=== PATIENT | male | born 1965 | race Caucasian/White ===

== ENCOUNTER 2023-12-21 16:57 | Inpatient (IN) ==
--- NOTE | 2023-12-21 18:03 | Emergency Department Note ---
Impression & Plan SBO (small bowel obstruction), Abdominal pain ED Provider Note NAME: KATHY TALLEY AGE: 58 SEX: M : 1965 ARRIVES VIA: Walk-In INFORMANT: Patient, ED PROVIDER(S): Serafin Sánchez DO CHIEF COMPLAINT: Abdominal pain HPI: The patient is a 58-year-old male who presented to the emergency department for an evaluation of abdominal pain. The patient has had ongoing abdominal pain over the course the last few days. The patient initially had nausea vomiting. He has a history of cholecystectomy as well as appendectomy. He went to see his family doctor and had outpatient studies ordered. He was sent to the emergency department for further evaluation. ROS: See above HPI for pertinent positives & negatives. A total of 10 systems reviewed and were otherwise negative. PAST MEDICAL HISTORY: See Below PAST SURGICAL HISTORY: See Below FAMILY HISTORY: See Below SOCIAL HISTORY: See Below HOME MEDICATIONS: See Below ALLERGIES: See Below VITALS: See Below PHYSICAL EXAMINATION: GENERAL: Patient is awake alert in no acute distress patient is resting comfortably and showing no signs of anxiety EYES: The conjunctivae are clear. The pupils are round and reactive. EARS, NOSE, MOUTH AND THROAT: The nose is without any evidence of any deformity. NECK: The neck is nontender and supple. RESPIRATORY: Normal respiratory effort is noted there is no evidence of wheezing rhonchi or rales CARDIOVASCULAR: Regular rate and rhythm noted there no murmurs rubs or gallops normal S1 normal S2. GASTROINTESTINAL: The abdomen is distended. There is diffuse tenderness to palpation but no specific guarding rigidity. MUSCULOSKELETAL/EXTREMITIES: There is no evidence of gross deformity full range of motion is noted in the hips and shoulders. SKIN: There is no obvious evidence of any rash. There are no petechiae, pallor or cyanosis noted. NEUROLOGIC: Patient is awake alert and oriented x3 MEDICAL DECISION MAKING: The pain is a 58-year-old male who presented to the emergency department for an evaluation of abdominal pain. The patient was seen by his primary care physician. He did have outpatient radiographic studies including a CAT scan of the abdomen and pelvis. He was found to have signs of small bowel obstruction with a transition point in right lower quadrant. He has a history of appendectomy as well as cholecystectomy. Likely this represents adhesions. The patient was not actively vomiting. I did not order an NG tube in the emergency department. He was treated with IV fluids and IV antiemetics although he did feel quite well. [facility] have agreed to evaluate the patient in the emergency department for further management and disposition. Triage Nursing notes reviewed. Prior medical records reviewed Vital Signs: reviewed and remarkable for no significant abnormalities Differential diagnosis: Etiologies such as appendicitis, diverticulitis, obstruction, inflammatory bowel disease, renal colic, PUD, biliary pathology, pancreatitis, mesenteric ischemia, aortic pathology, infections, genitourinary, UTI, perforated viscus, as well as others were entertained. ER treatment provided: See below Diagnostics interpreted by me: ECG: none Cardiac Monitoring: An order was placed for continuous cardiac monitoring. The monitor shows a rate of 70 bpm with sinus rhythm. Laboratory studies: As stated above and show below. Imaging studies: See below. Radiographic imaging was reviewed by myself Consultation(s): I discussed this case with the on-call [facility] hospitalist. They have agreed to evaluate the patient in the emergency department for further management and disposition. Past Med/Surg History Problem List (Updated 12/21/23 @ 23:59 by Serafin Sánchez DO) Abdominal pain (Acute) SBO (small bowel obstruction) (Acute) Medical History Dyslipidemia Sleep apnea had a sleep study, he "is borderline, said he could have a cpap if he wanted, but his trying to lose weight first" Hypertension Surgical History Hx laparoscopic cholecystectomy Hx of appendectomy History of esophagogastroduodenoscopy (EGD) Hx of colonoscopy Hx of oral surgery implant x1 placed S/P correction of deviated nasal septum Hx of cataract extraction rt/lt. Family History Other Diabetes Hypertension Social History Smoking Status: Former smoker Second Hand Exposure: No; Do You Dip or Chew Tobacco: No; Hx Alcohol Use: Yes Hx Substance Use: No Preferred Language: Urdu Communication Ability: Effective Nuclear Station Operator Required: No Beliefs That Will Affect Care: None Current Living Situation: Spouse and Family Feels Safe at Home: Yes Assistive Devices: None Allergies Allergies Allergy/AdvReac Type Severity Reaction Status Date / Time cephalexin Allergy Severe swelling Verified 12/21/23 23:29 of face and lips Penicillins Allergy Unknown unknown-from Verified 12/21/23 23:29 childhood Home Meds Home Medications Medication Instructions Recorded Confirmed acetaminophen 500 mg tablet 500 mg PO Q6H PRN Pain 03/11/22 12/21/23 ibuprofen 200 mg tablet 600 mg PO Q6H PRN Pain 03/11/22 12/21/23 lisinopril 10 1 tab PO QAM 03/11/22 12/21/23 mg-hydrochlorothiazide 12.5 mg tablet atorvastatin 10 mg tablet 10 mg PO DAILY 12/21/23 12/21/23 omeprazole 40 mg capsule,delayed 40 mg PO DAILY 12/21/23 12/21/23 release Results & Data (ED) Vital Signs Vital Signs - 24 hr 12/21/23 17:12 12/21/23 17:48 12/21/23 18:28 Temperature 36.5 C Temperature Source Temporal Artery Scan Pulse Rate 79 80 Pulse Rate [Left Apical] 75 Pulse Rate from SpO2 Sensor Respiratory Rate 14 20 Respiratory Effort / Characteristics Non-Labored Spontaneous Respiratory Depth Normal Respiratory Pattern Regular Blood Pressure 146/83 H Blood Pressure [Left Arm] 148/84 H Blood Pressure Mean 104 Blood Pressure Mean [Left Arm] 105 Blood Pressure Position [Left Arm] Semi-fowlers Pulse Oximetry 98 98 Oxygen Delivery Method Room Air Room Air Sepsis New/Unexplained Change in Mental Status No Sepsis Action Taken by Nursing No Action Required 12/21/23 19:00 12/21/23 19:21 12/21/23 19:24 Temperature Temperature Source Pulse Rate 67 65 Pulse Rate [Left Apical] Pulse Rate from SpO2 Sensor 66 64 Respiratory Rate 14 14 Respiratory Effort / Characteristics Respiratory Depth Respiratory Pattern Blood Pressure 138/85 Blood Pressure [Left Arm] Blood Pressure Mean 110 Blood Pressure Mean [Left Arm] Blood Pressure Position [Left Arm] Pulse Oximetry 99 97 Oxygen Delivery Method Sepsis New/Unexplained Change in Mental Status Sepsis Action Taken by Nursing 12/21/23 19:30 12/21/23 19:30 12/21/23 19:30 Temperature Temperature Source Pulse Rate Pulse Rate [Left Apical] Pulse Rate from SpO2 Sensor Respiratory Rate Respiratory Effort / Characteristics Respiratory Depth Respiratory Pattern Blood Pressure 129/81 129/81 129/81 Blood Pressure [Left Arm] Blood Pressure Mean 106 106 106 Blood Pressure Mean [Left Arm] Blood Pressure Position [Left Arm] Pulse Oximetry Oxygen Delivery Method Sepsis New/Unexplained Change in Mental Status Sepsis Action Taken by Nursing 12/21/23 19:54 12/21/23 20:00 12/21/23 20:00 Temperature Temperature Source Pulse Rate 70 Pulse Rate [Left Apical] Pulse Rate from SpO2 Sensor 72 Respiratory Rate 16 Respiratory Effort / Characteristics Respiratory Depth Respiratory Pattern Blood Pressure 127/78 127/78 Blood Pressure [Left Arm] Blood Pressure Mean 90 90 Blood Pressure Mean [Left Arm] Blood Pressure Position [Left Arm] Pulse Oximetry 95 Oxygen Delivery Method Sepsis New/Unexplained Change in Mental Status Sepsis Action Taken by Nursing 12/21/23 20:00 12/21/23 20:03 Temperature Temperature Source Pulse Rate 67 Pulse Rate [Left Apical] Pulse Rate from SpO2 Sensor 67 Respiratory Rate 12 Respiratory Effort / Characteristics Respiratory Depth Respiratory Pattern Blood Pressure 127/78 Blood Pressure [Left Arm] Blood Pressure Mean 90 Blood Pressure Mean [Left Arm] Blood Pressure Position [Left Arm] Pulse Oximetry 96 Oxygen Delivery Method Sepsis New/Unexplained Change in Mental Status Sepsis Action Taken by Retirement Medications Current Medication List: was personally reviewed by me Laboratory Data Attestation: I reviewed the patient's lab results. 12/21/23 17:41 12/21/23 17:41 Lab Results 12/21/23 12/21/23 12/21/23 Range/Units 17:41 17:45 19:25 WBC 6.72 (4.8-10.8) K/ul RBC 4.99 (4.70-6.10) M/uL Hgb 14.6 (14.0-18.0) g/dl Hct 41.6 L (42.0-52.0) % MCV 83.4 (80.0-100.0) fL MCH 29.3 (25.0-34.0) pg MCHC 35.1 (32.0-36.0) g/dL RDW Std Deviation 41.1 (36.4-46.3) fL RDW Coeff of Re 13.6 (11.5-14.5) % Plt Count 210 (130-400) K/uL MPV 10.9 (9.4-12.4) fL Immature Gran % (Auto) 0.1 % Neut % (Auto) 70.1 % Lymph % (Auto) 22.8 % [place] % (Auto) 5.1 % Eos % (Auto) 1.6 % Baso % (Auto) 0.3 % Neut # (Auto) 4.71 (1.40-6.50) K/uL Lymph # (Auto) 1.53 (1.20-3.40) K/uL [place] # (Auto) 0.34 (0.11-0.59) K/uL Eos # (Auto) 0.11 (0.00-0.50) K/uL Baso # (Auto) 0.02 (0.00-0.20) K/uL Immature Gran # (Auto) 0.01 (0.01-0.20) K/uL Sodium 141 (136-145) mmol/L Potassium 3.3 L (3.5-5.1) mmol/L Chloride 103 (98-107) mmol/L Carbon Dioxide 30 (21-32) mmol/L Anion Gap 8 (3-11) BUN 18 (6-23) mg/dl Creatinine 1.05 (0.6-1.4) mg/dl Est Cr Clr Drug Dosing 88.6 ml/min Est GFR ( Amer) 89.6 ml/min Est GFR (Non-Af Amer) 77.3 ml/min BUN/Creatinine Ratio 17.1 (10-20) Glucose 144 H (70-99(Fasting)) mg/dl Lactate 0.7 (0.4-2.0) mmol/L Calcium 9.5 (8.6-10.3) mg/dl Total Bilirubin 0.7 (0.2-1.0) mg/dl AST 13 (13-39) U/L ALT 11 (7-52) U/L Alkaline Phosphatase 46 (34-104) U/L Total Protein 7.0 (6.0-8.3) gm/dl Albumin 4.4 (3.4-5.0) gm/dl Globulin 2.6 (2.5-4.0) gm/dl Albumin/Globulin Ratio 1.7 (0.9-2) Lipase 7 L (11-82) U/L Urine Color Dark Yellow Urine Appearance Clear (Clear) Urine pH 5.5 (4.5-7.5) Ur Specific [place] 1.021 (1.000-1.030) Urine Protein Trace H (Negative) Urine Glucose (UA) Negative (Negative) Urine Ketones Negative (Negative) Urine Blood Negative (Negative) Urine Nitrite Negative (Negative) Urine Bilirubin Negative (Negative) Urine Urobilinogen Negative (Negative) Ur Leukocyte Esterase Negative (Negative) Urine WBC (Auto) 0-5 (0-5) /hpf Urine RBC (Auto) 0-2 (0-2) /hpf U Hyaline Cast (Auto) 3-5 H (0-2) /lpf U Epithel Cells (Auto) 0-2 (0-2) /hpf Urine Bacteria (Auto) None Seen (None Seen) Urine Mucus Present A (None Prsent) Administered Medications Potassium Chloride 40 meq/ (Sodium Chloride) 1,020 mls @ 100 mls/hr IV .[id number] MICKI Stop: 12/22/23 05:11 Last Admin: 12/21/23 19:30 Dose: 100 mls/hr Documented By: EDDIE Discontinued Medications Sodium Chloride (Nss) 1,000 mls @ 999 mls/hr IV .[id number] ONE Stop: 12/21/23 19:16 Last Infusion: 12/21/23 19:30 Dose: Infused Documented By: Admin: 12/21/23 18:21 Dose: 999 mls/hr Documented By: LOPEZ Sodium Chloride (Nss) 1,000 mls @ 100 mls/hr IV .Q10H MICKI Stop: 01/20/24 18:44 Last Admin: 12/21/23 19:33 Dose: Not Given Documented By: EDDIE Ondansetron HCl (Ondansetron Inj 2 Mg/Ml 2 Ml Vial) 4 mg IV NOW STA Stop: 12/21/23 18:17 Last Admin: 12/21/23 18:21 Dose: 4 mg Documented By: LOPEZ Potassium Chloride (Potassium Chloride Crtab 20 Meq Tabcr) 40 meq PO NOW STA Stop: 12/21/23 18:30 Last Admin: 12/21/23 19:30 Dose: Not Given Documented By: EDDIE Imaging Data Attestation: I personally reviewed and interpreted this imaging study as follows: My Impression: 1 view chest x-ray was obtained in the emergency department. My interpretation is no free air or definite infiltrate, final report below. Radiologist's Impression: Chest X-Ray 12/21/23 17:59 XR chest 1V portable CLINICAL HISTORY: abd pain TECHNIQUE: Single frontal radiograph of the chest was obtained. Comparison: None available at the time of this dictation. FINDINGS: No lines and tubes are seen. The cardiomediastinal silhouette is normal. The lungs are clear. No evidence of pleural effusion or pneumothorax. IMPRESSION: No acute chest disease. ACT 112: Negative or not required by law. Electronically signed by: William Turcios M.D. 12/21/2023 6:21 PM Discharge Plan Visit Data Chief Complaint: GI Assessment Stated Complaint: BOWEL OBSTRUCTION ED Provider: Serafin Sánchez Discharge Problem: SBO (small bowel obstruction), Abdominal pain Patient Disposition: Admitted As Inpatient Discharge Instructions Interventions: ED Discharge Assessment Last Done: 12/21/23 22:18 Discharge Problem: Abdominal pain Qualifiers: Abdominal location: generalized Qualified Code(s): R10.84 - Generalized abdominal pain
[2023-12-21 18:07] LABS: Basophils # (auto) 0.02 K/uL (0.00-0.20); Basophils % (auto) 0.3 %; Eosinophils # (auto) 0.11 K/uL (0.00-0.50); Eosinophils % (auto) 1.6 %; Hematocrit (blood only) 41.6 % (42.0-52.0); Hemoglobin 14.6 g/dl (14.0-18.0); Immature Granulocytes # (auto) 0.01 K/uL (0.01-0.20); Immature Granulocytes % (auto) 0.1 %; Lymphocytes # (auto) 1.53 K/uL (1.20-3.40); Lymphocytes % (auto) 22.8 %; Mean Corpuscular Hemoglobin 29.3 pg (25.0-34.0); Mean Corpuscular Hgb Conc 35.1 g/dL (32.0-36.0); Mean Corpuscular Volume 83.4 fL (80.0-100.0); Mean Platelet Volume 10.9 fL (9.4-12.4); Monocytes # (auto) 0.34 K/uL (0.11-0.59); Monocytes % (auto) 5.1 %; Neutrophils # (auto) 4.71 K/uL (1.40-6.50); Neutrophils % (auto) 70.1 %; Platelet Count 210 K/uL (130-400); RDW Coefficient of Variation 13.6 % (11.5-14.5); RDW Standard Deviation 41.1 fL (36.4-46.3); Red Blood Count 4.99 M/uL (4.70-6.10); White Blood Count 6.72 K/ul (4.8-10.8)
[2023-12-21 18:13] LABS: Appearance Urine Clear (Clear); Bacteria Urine Automated None Seen (None Seen); Bilirubin Urine Negative (Negative); Blood Urine Negative (Negative); Color Urine Dark Yellow; Epithelial Cell Urine Auto 0-2 /hpf (0-2); Glucose Urine UA Negative (Negative); Ketones Urine Negative (Negative); Leukocyte Esterase Urine Negative (Negative); Mucus Urine Present (None Prsent); Nitrite Urine Negative (Negative); Protein Urine Trace (Negative); RBC Urine Automated 0-2 /hpf (0-2); Specific Gravity Urine 1.021 (1.000-1.030); Urobilinogen Urine Negative (Negative); WBC Urine Automated 0-5 /hpf (0-5); pH Urine 5.5 (4.5-7.5)
[2023-12-21 18:20] LABS: Albumin Globulin Ratio 1.7 (0.9-2); Albumin Level 4.4 gm/dl (3.4-5.0); BUN Creatinine Ratio 17.1 (10-20); Bilirubin,Total 0.7 mg/dl (0.2-1.0); Calcium 9.5 mg/dl (8.6-10.3); Creatinine Clr Calc Pharmacy 88.6 ml/min; Est GFR (African American) 89.6 ml/min; Est GFR (Non-African American) 77.3 ml/min; Globulin 2.6 gm/dl (2.5-4.0); Potassium 3.3 mmol/L (3.5-5.1)
[2023-12-21] MEDS: ONDANSETRON INJ 2 MG/ML 2 ML VIAL IV STA (18:21)
[2023-12-21] MEDS: SODIUM CHLORIDE 0.9% 1,000 ML IV ONE (18:21)
--- NOTE | 2023-12-21 18:23 | XRay Report ---
XR chest 1V portable CLINICAL HISTORY: abd pain TECHNIQUE: Single frontal radiograph of the chest was obtained. Comparison: None available at the time of this dictation. FINDINGS: No lines and tubes are seen. The cardiomediastinal silhouette is normal. The lungs are clear. No evid ence of pleural effusion or pneumothorax. IMPRESSION: No acute chest disease. ACT 112: Negative or not required by law. Electronically signed by: William Turcios M.D. 12/21/2023 6:21 PM
--- NOTE | 2023-12-21 18:27 | History & Physical Report ---
Date of Service December 21, 2023 Assessment & Plan (1) SBO (small bowel obstruction): (2) Abdominal pain: Plan: This is a 58-year-old male with PMH of hypertension, dyslipidemia, KARO and other medical problems listed below who was sent in from clinic due to abnormal CT abdomen pelvis findings. "FINDINGS LOWER CHEST: HEART(visualized): Mild calcified coronary artery plaque. LUNG BASES: Punctate right and left lower lobe calcified granulomas. ABDOMEN/PELVIS: LINES AND DEVICES: None. LIVER: Steatosis. Subcentimeter rim calcified capsular calcifications on the right lobe of the liver, possibly small dropped gallstones. BILE DUCTS: Unremarkable. GALLBLADDER: Cholecystectomy. PANCREAS: Unremarkable. SPLEEN: Unremarkable. ADRENALS: Unremarkable. KIDNEYS/URETERS: Cortical cysts. No calculus or hydronephrosis. BLADDER: Underdistended with mild circumferential wall thickening, possibly reflecting chronic bladder outlet obstruction in the setting of prostatomegaly. BOWEL: Dilated loops of ileum, with some loops containing fecalized material (8:348), measure up to 4.1 cm in diameter with transition point in the right lower quadrant (6:58). No pneumatosis. LYMPH NODES: No lymphadenopathy. VESSELS: Calcified atherosclerotic plaque. Engorged small-bowel vasa recta. REPRODUCTIVE ORGANS: Mild prostatomegaly. PERITONEUM/RETROPERITONEUM: Small volume free fluid centered in the right lower quadrant adjacent to dilated loops of small bowel and in the dependent pelvis. Five subcentimeter rim calcified structures in the dependent pelvis and a few in the right peritoneum may be dropped gallstones. ABDOMINAL WALL/SOFT TISSUES: Small fat containing supraumbilical ventral abdominal wall hernia. BONES: 2.7 cm lucent lesion centered in the left intertrochanteric region with thin sclerotic margin. Mild spinal degenerative changes. IMPRESSION IMPRESSION Small-bowel obstruction with transition point in the right lower quadrant and small volume free fluid. Hepatic steatosis. 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 Hold lisinopril-hctz while NPO. Added PRN hydralazine (4) Dyslipidemia: Plan: Resume statin as diet is advanced DVT Ppx: SCDs Code status: FULL PCP: Geovanni Dispo: Admitted to med/surg Patient seen in collaboration with Dr. Arce. Please see addendum. I spent a total of 75 minutes coordinating, documenting, and providing care for this patient excluding time spent in the performance of separately billed services. History of Present Illness Chief Complaint: abd pain, abnormal CT a/p Primary Care Provider: Alan Oshea MD This is a 58-year-old male with PMH of hypertension, dyslipidemia, KARO and other medical problems listed below who was sent in from clinic due to abnormal CT abdomen pelvis findings. Over the past few days, has noted abdominal pain described as cramping, aching and bloating. Poor PO intake with last big meal from [employer] on Wednesday. No nausea and vomiting but continued to have abdominal pain and bloating so went to PCP today. There was initial concern for diverticulitis and CT abd/pelvis was obtained, which revealed small bowel obstruction with transition point in the right lower quadrant and small volume free fluid. History of appendectomy and lap jaclyn. Was sent to ED for further evaluation. No F/C, lightheadedness, CP, SOB, N/V, dysuria, diarrhea or constipation. Still with bloating and TTP, more in epigastrium and upper abdomen. Last bowel movement was Wednesday. Allergies Allergy/AdvReac Type Severity Reaction Status Date / Time cephalexin Allergy Severe swelling Verified 12/21/23 23:29 of face and lips Penicillins Allergy Unknown unknown-from Verified 12/21/23 23:29 childhood Home Medications Medication Instructions Recorded Confirmed Type acetaminophen 500 mg tablet 500 mg PO Q6H PRN Pain 03/11/22 12/21/23 History ibuprofen 200 mg tablet 600 mg PO Q6H PRN Pain 03/11/22 12/21/23 History lisinopril 10 1 tab PO QAM 03/11/22 12/21/23 History mg-hydrochlorothiazide 12.5 mg tablet atorvastatin 10 mg tablet 10 mg PO DAILY 12/21/23 12/21/23 History omeprazole 40 mg capsule,delayed 40 mg PO DAILY 12/21/23 12/21/23 History release Past Med/Surg History Problem List (Updated 12/21/23 @ 23:59 by Serafin Sánchez DO) Abdominal pain (Acute) SBO (small bowel obstruction) (Acute) Medical History Dyslipidemia Sleep apnea had a sleep study, he "is borderline, dr said he could have a cpap if he wanted, but his trying to lose weight first" Hypertension Surgical History Hx laparoscopic cholecystectomy Hx of appendectomy History of esophagogastroduodenoscopy (EGD) Hx of colonoscopy Hx of oral surgery implant x1 placed S/P correction of deviated nasal septum Hx of cataract extraction rt/lt. Family History Other Diabetes Hypertension Social History Smoking Status: Former smoker Tobacco Type: Cigarettes Second Hand Exposure: No; Do You Dip or Chew Tobacco: No; Hx Alcohol Use: No Hx Substance Use: No Preferred Language: Fijian Communication Ability: Effective Non Destructive Evaluation Specialist Required: No Beliefs That Will Affect Care: None Current Living Situation: Spouse and Family Other Information That Helps Us Care for You: No Feels Safe at Home: Yes Assistive Devices: CPAP Review of Systems Review of Systems: At least ten systems reviewed and negative except as noted in the HPI. Physical Exam Physical Exam: General Appearance: WD/WN, vitals as above, NAD, sitting up in bed, conversing easily Head: normocephalic, atraumatic Eyes: normal inspection, PERRL, conjunctivae normal, anicteric sclerae ENT: external ear and nose normal, oropharynx normal Neck: normal visual inspection, trachea midline, no thyromegaly Respiratory: normal respiratory effort, lungs clear to auscultation, no wheeze, rales, rhonchi. No accessory muscle use Cardiovascular: regular rate, rhythm, no murmur, normal peripheral pulses, no BLE edema. Vessels: no JVD Chest: normal inspection of chest Abdomen/GI: hypoactive bowel sounds, soft, TTP throughout but most tender in u pper abdomen/epigastrium, no hepatosplenomegaly Extremities/Musculoskeletal: no cyanosis or clubbing, extremities motor strength 5/5 Neurologic: PERRL, EOMI, accommodation nl, no face palsy, no dysarthria, CN's II-XI intact bilaterally and moves all extremities Psychiatric: A+Ox3, euthymic affect Skin: no rashes, normal color, warm/dry Results & Data Results & Data Vital Signs (Past 12 Hours) Vital Signs Temp Pulse Pulse Resp BP BP Pulse Ox 12/21/23 17:48 75 20 148/84 H 98 12/21/23 17:12 36.5 C 79 14 146/83 H 98 O2 Del Method 12/21/23 17:48 Room Air 12/21/23 17:12 Room Air Laboratory Results Short CBC 12/21/23 Range/Units 17:41 WBC 6.72 (4.8-10.8) K/ul Hgb 14.6 (14.0-18.0) g/dl Hct 41.6 L (42.0-52.0) % Plt Count 210 (130-400) K/uL BMP 12/21/23 17:41 Sodium 141 Potassium 3.3 L Chloride 103 Carbon Dioxide 30 BUN 18 Creatinine 1.05 Glucose 144 H Calcium 9.5 Liver Function 12/21/23 Range/Units 17:41 Total Bilirubin 0.7 (0.2-1.0) mg/dl AST 13 (13-39) U/L ALT 11 (7-52) U/L Alkaline Phosphatase 46 (34-104) U/L Albumin 4.4 (3.4-5.0) gm/dl Urine 12/21/23 Range/Units 17:45 Urine Color Dark Yellow Urine Appearance Clear (Clear) Urine pH 5.5 (4.5-7.5) Ur Specific [place] 1.021 (1.000-1.030) Urine Protein Trace H (Negative) Urine Glucose (UA) Negative (Negative) Diagnostic Findings Chest X-Ray 12/21/23 17:59 XR chest 1V portable CLINICAL HISTORY: abd pain TECHNIQUE: Single frontal radiograph of the chest was obtained. Comparison: None available at the time of this dictation. FINDINGS: No lines and tubes are seen. The cardiomediastinal silhouette is normal. The lungs are clear. No evidence of pleural effusion or pneumothorax. IMPRESSION: No acute chest disease. ACT 112: Negative or not required by law. Electronically signed by: William Turcios M.D. 12/21/2023 6:[address] abd/pelvis from outpatient setting (12/21/23) : IMPRESSION Small-bowel obstruction with transition point in the right lower quadrant and small volume free fluid. Hepatic steatosis. Supervising Physician Co-Signing Physician Notes Pt was seen and examined by myself, Christina Arce MD on the day of service. Care was coordinated with Juana Matthews PA-C. 58yoM sent in by pcp for concerning abdominal pain with noted SBO on outpt CT scan and dropped gallstones. Pt notes Hx of appendectomy and cholecystectomy. Denies nausea or vomiting noting that his problem is abdominal pain that is sometimes severe and comes in waves. No BM for some days, occasionally passing gas. Abdomen extremely tender on exam even to light touch Outpatient CT noted the following: "FINDINGS LOWER CHEST: HEART(visualized): Mild calcified coronary artery plaque. LUNG BASES: Punctate right and left lower lobe calcified granulomas. ABDOMEN/PELVIS: LINES AND DEVICES: None. LIVER: Steatosis. Subcentimeter rim calcified capsular calcifications on the right lobe of the liver, possibly small dropped gallstones. BILE DUCTS: Unremarkable. GALLBLADDER: Cholecystectomy. PANCREAS: Unremarkable. SPLEEN: Unremarkable. ADRENALS: Unremarkable. KIDNEYS/URETERS: Cortical cysts. No calculus or hydronephrosis. BLADDER: Underdistended with mild circumferential wall thickening, possibly reflecting chronic bladder outlet obstruction in the setting of prostatomegaly. BOWEL: Dilated loops of ileum, with some loops containing fecalized material (8:348), measure up to 4.1 cm in diameter with transition point in the right lower quadrant (6:58). No pneumatosis. LYMPH NODES: No lymphadenopathy. VESSELS: Calcified atherosclerotic plaque. Engorged small-bowel vasa recta. REPRODUCTIVE ORGANS: Mild prostatomegaly. PERITONEUM/RETROPERITONEUM: Small volume free fluid centered in the right lower quadrant adjacent to dilated loops of small bowel and in the dependent pelvis. Five subcentimeter rim calcified structures in the dependent pelvis and a few in the right peritoneum may be dropped gallstones. ABDOMINAL WALL/SOFT TISSUES: Small fat containing supraumbilical ventral abdominal wall hernia. BONES: 2.7 cm lucent lesion centered in the left intertrochanteric region with thin sclerotic margin. Mild spinal degenerative changes. IMPRESSION IMPRESSION Small-bowel obstruction with transition point in the right lower quadrant and small volume free fluid. Hepatic steatosis. 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 I spent a total [id number] coordinating, documenting, and providing care for this patient excluding time spent in the performance of separately billed services
[2023-12-21] MEDS: POTASSIUM CHLORIDE CRTAB 20 MEQ TABCR PO STA (19:30)
[2023-12-21] MEDS: POTASSIUM CHLORIDE 40 MEQ in SODIUM CHLORIDE 0.9% 1,000 ML IV SCH (19:30)
[2023-12-21] MEDS: SODIUM CHLORIDE 0.9% 1,000 ML IV SCH (19:33)
[2023-12-21] MEDS ORDERED: MELATONIN 3 MG TAB PO PRN (22:17)
[2023-12-21] MEDS ORDERED: hydrALAZINE HCL 20 MG/ML VIAL IV PRN (22:17)
[2023-12-21] MEDS ORDERED: ONDANSETRON INJ 2 MG/ML 2 ML VIAL IV PRN (22:17)
[2023-12-21] MEDS ORDERED: ACETAMINOPHEN 1,000 MG/100 ML VIAL IV PRN (22:17)
[2023-12-22 05:00] LABS: Albumin Globulin Ratio 1.8 (0.9-2); Albumin Level 3.6 gm/dl (3.4-5.0); BUN Creatinine Ratio 17.4 (10-20); Bilirubin,Total 0.6 mg/dl (0.2-1.0); Calcium 8.4 mg/dl (8.6-10.3); Creatinine Clr Calc Pharmacy 101.1 ml/min; Est GFR (African American) 105.1 ml/min; Est GFR (Non-African American) 90.7 ml/min; Magnesium 1.9 mg/dl (1.7-2.4); Phosphorus 3.5 mg/dl (2.5-4.9); Potassium 3.7 mmol/L (3.5-5.1); Total Protein 5.6 gm/dl (6.0-8.3)
[2023-12-22 05:07] LABS: Hemoglobin 11.7 g/dl (14.0-18.0); Mean Corpuscular Hemoglobin 28.3 pg (25.0-34.0); Mean Corpuscular Hgb Conc 33.4 g/dL (32.0-36.0); Mean Corpuscular Volume 84.5 fL (80.0-100.0); Mean Platelet Volume 10.9 fL (9.4-12.4); Platelet Count 166 K/uL (130-400); RDW Coefficient of Variation 13.4 % (11.5-14.5); RDW Standard Deviation 41.9 fL (36.4-46.3); Red Blood Count 4.14 M/uL (4.70-6.10); White Blood Count 6.38 K/ul (4.8-10.8)
[2023-12-22] MEDS: SODIUM CHLORIDE 0.9% 1,000 ML IV SCH (05:20)
--- NOTE | 2023-12-22 10:05 | Surgery Consultation ---
<Statement entered by Shaan Laureano MD - 12/22/23 11:42> aptient seen and examined. Agree with above paln Date of Consultation December 22, 2023 Assessment & Plan (1) SBO (small bowel obstruction): (2) Abdominal pain: 58 yo male with history of appendectomy and cholecystectomy many years ago presented to ED with abdominal pain and nausea that began Wednesday and increasingly progressed. Outpatient ct scan showing SBO with transition in RLQ. Afebrile, no leukocytosis, normal lactate, abdomen is soft but mildly distended and generalized tenderness with voluntary guarding of the RLQ but no rigidity or peritonitis. Plan: Continue conservative measures: NPO for bowel rest, IV fluids, pain management, antiemetics. Encouraged ambulation with pain management if needed Continue medical management await KUB results this am Discussed with Dr. Laureano who will independently evaluate patient. History of Present Illness Reason for Consultation: SBO Requesting Physician: Juana Matthews PA-C Attending Physician: Shani Pope MD History of Present Illness Mr. Meza is a 58 year-old male who presented to ED with abdominal pain and nausea that started on Wednesday. States pain increased on Wednesday and Wednesday with associated nausea, feeling of fullness but no vomiting. States he had soft bowel movement on Wednesday morning. History of appendectomy and cholecystectomy many years ago. No prior SBO history. No fevers, chills, chest pain , sh ortness of breath, difficulty urinating. Currently rating pain 6/10. Has not had any pain medication. Nausea and bloating have improved overnight. Has passed some gas. Has no been out of bed other than going to bathroom and changing room. Hungry this morning. Allergies Allergy/AdvReac Type Severity Reaction Status Date / Time cephalexin Allergy Severe swelling Verified 12/21/23 23:29 of face and lips Penicillins Allergy Unknown unknown-from Verified 12/21/23 23:29 childhood Home Medications Medication Instructions Recorded Confirmed Type acetaminophen 500 mg tablet 500 mg PO Q6H PRN Pain 03/11/22 12/21/23 History ibuprofen 200 mg tablet 600 mg PO Q6H PRN Pain 03/11/22 12/21/23 History lisinopril 10 1 tab PO QAM 03/11/22 12/21/23 History mg-hydrochlorothiazide 12.5 mg tablet atorvastatin 10 mg tablet 10 mg PO DAILY 12/21/23 12/21/23 History omeprazole 40 mg capsule,delayed 40 mg PO DAILY 12/21/23 12/21/23 History release Patient History Medical History Dyslipidemia Sleep apnea had a sleep study, he "is borderline, dr said he could have a cpap if he wanted, but his trying to lose weight first" Hypertension Surgical History Hx laparoscopic cholecystectomy Hx of appendectomy History of esophagogastroduodenoscopy (EGD) Hx of colonoscopy Hx of oral surgery implant x1 placed S/P correction of deviated nasal septum Hx of cataract extraction rt/lt. Family History Other Diabetes Hypertension Social History Smoking Status: Former smoker Tobacco Type: Cigarettes Second Hand Exposure: No; Do You Dip or Chew Tobacco: No; Hx Alcohol Use: No Hx Substance Use: No Preferred Language: Swazi Communication Ability: Effective Raspberry Checker Required: No Beliefs That Will Affect Care: None Current Living Situation: Spouse and Family Other Information That Helps Us Care for You: No Feels Safe at Home: Yes Assistive Devices: CPAP Review of Systems Review of Systems: All systems reviewed & are unremarkable except as noted in HPI & below Physical Exam Constitutional: cooperative and comfortable; no acute distress and not ill appearing Respiratory: normal respiratory effort, lungs clear to auscultation Cardiovascular: RRR, no murmur, no edema Gastrointestinal (Abdomen): Inspection/Auscultation: abdomen normal to inspection, + abdomen distended (mildly) and + abdominal surgical scar Percussion/Palpation: + abdomen tender (generalized more in lower abdomen bilaterally), + guarding (voluntary in RLQ) and abdomen soft; abdomen not rigid and abdomen not firm Skin: no rashes, warm and dry Psychiatric: A+Ox3, euthymic affect Results & Data Vital Signs (Past 12 Hours) Vital Signs Pulse Pulse Resp BP BP Pulse Ox O2 Del Method 12/22/23 08:43 75 18 142/81 H 94 Room Air 12/22/23 05:17 66 14 124/90 95 Room Air 12/22/23 02:01 64 12 122/66 95 Room Air 12/22/23 02:00 64 12 122/66 95 Room Air 12/22/23 00:00 119/80 12/21/23 23:51 69 14 95 12/21/23 23:18 73 12/21/23 23:09 72 16 96 12/21/23 22:28 62 Laboratory Results 12/22/23 12/21/23 12/21/23 Range/Units 04:18 19:25 17:45 WBC 6.38 (4.8-10.8) K/ul RBC 4.14 L (4.70-6.10) M/uL Hgb 11.7 L D (14.0-18.0) g/dl Hct 35.0 L (42.0-52.0) % MCV 84.5 (80.0-100.0) fL MCH 28.3 (25.0-34.0) pg MCHC 33.4 (32.0-36.0) g/dL RDW Std Deviation 41.9 (36.4-46.3) fL RDW Coeff of Re 13.4 (11.5-14.5) % Plt Count 166 (130-400) K/uL MPV 10.9 (9.4-12.4) fL Immature Gran % (Auto) % Neut % (Auto) % Lymph % (Auto) % [place] % (Auto) % Eos % (Auto) % Baso % (Auto) % Neut # (Auto) (1.40-6.50) K/uL Lymph # (Auto) (1.20-3.40) K/uL [place] # (Auto) (0.11-0.59) K/uL Eos # (Auto) (0.00-0.50) K/uL Baso # (Auto) (0.00-0.20) K/uL Immature Gran # (Auto) (0.01-0.20) K/uL Sodium 142 (136-145) mmol/L Potassium 3.7 (3.5-5.1) mmol/L Chloride 110 H (98-107) mmol/L Carbon Dioxide 27 (21-32) mmol/L Anion Gap 5 (3-11) BUN 16 (6-23) mg/dl Creatinine 0.92 (0.6-1.4) mg/dl Est Cr Clr Drug Dosing 101.1 ml/min Est GFR ( Amer) 105.1 ml/min Est GFR (Non-Af Amer) 90.7 ml/min BUN/Creatinine Ratio 17.4 (10-20) Glucose 90 (70-99(Fasting)) mg/dl Lactate 0.7 (0.4-2.0) mmol/L Calcium 8.4 L (8.6-10.3) mg/dl Phosphorus 3.5 (2.5-4.9) mg/dl Magnesium 1.9 (1.7-2.4) mg/dl Total Bilirubin 0.6 (0.2-1.0) mg/dl AST 11 L (13-39) U/L ALT 9 (7-52) U/L Alkaline Phosphatase 36 (34-104) U/L Total Protein 5.6 L (6.0-8.3) gm/dl Albumin 3.6 (3.4-5.0) gm/dl Globulin 2.0 L (2.5-4.0) gm/dl Albumin/Globulin Ratio 1.8 (0.9-2) Lipase (11-82) U/L Urine Color Dark Yellow Urine Appearance Clear (Clear) Urine pH 5.5 (4.5-7.5) Ur Specific [place] 1.021 (1.000-1.030) Urine Protein Trace H (Negative) Urine Glucose (UA) Negative (Negative) Urine Ketones Negative (Negative) Urine Blood Negative (Negative) Urine Nitrite Negative (Negative) Urine Bilirubin Negative (Negative) Urine Urobilinogen Negative (Negative) Ur Leukocyte Esterase Negative (Negative) Urine WBC (Auto) 0-5 (0-5) /hpf Urine RBC (Auto) 0-2 (0-2) /hpf U Hyaline Cast (Auto) 3-5 H (0-2) /lpf U Epithel Cells (Auto) 0-2 (0-2) /hpf Urine Bacteria (Auto) None Seen (None Seen) Urine Mucus Present A (None Prsent) 12/21/23 Range/Units 17:41 WBC 6.72 (4.8-10.8) K/ul RBC 4.99 (4.70-6.10) M/uL Hgb 14.6 (14.0-18.0) g/dl Hct 41.6 L (42.0-52.0) % MCV 83.4 (80.0-100.0) fL MCH 29.3 (25.0-34.0) pg MCHC 35.1 (32.0-36.0) g/dL RDW Std Deviation 41.1 (36.4-46.3) fL RDW Coeff of Re 13.6 (11.5-14.5) % Plt Count 210 (130-400) K/uL MPV 10.9 (9.4-12.4) fL Immature Gran % (Auto) 0.1 % Neut % (Auto) 70.1 % Lymph % (Auto) 22.8 % [place] % (Auto) 5.1 % Eos % (Auto) 1.6 % Baso % (Auto) 0.3 % Neut # (Auto) 4.71 (1.40-6.50) K/uL Lymph # (Auto) 1.53 (1.20-3.40) K/uL [place] # (Auto) 0.34 (0.11-0.59) K/uL Eos # (Auto) 0.11 (0.00-0.50) K/uL Baso # (Auto) 0.02 (0.00-0.20) K/uL Immature Gran # (Auto) 0.01 (0.01-0.20) K/uL Sodium 141 (136-145) mmol/L Potassium 3.3 L (3.5-5.1) mmol/L Chloride 103 (98-107) mmol/L Carbon Dioxide 30 (21-32) mmol/L Anion Gap 8 (3-11) BUN 18 (6-23) mg/dl Creatinine 1.05 (0.6-1.4) mg/dl Est Cr Clr Drug Dosing 88.6 ml/min Est GFR ( Amer) 89.6 ml/min Est GFR (Non-Af Amer) 77.3 ml/min BUN/Creatinine Ratio 17.1 (10-20) Glucose 144 H (70-99(Fasting)) mg/dl Lactate (0.4-2.0) mmol/L Calcium 9.5 (8.6-10.3) mg/dl Phosphorus (2.5-4.9) mg/dl Magnesium (1.7-2.4) mg/dl Total Bilirubin 0.7 (0.2-1.0) mg/dl AST 13 (13-39) U/L ALT 11 (7-52) U/L Alkaline Phosphatase 46 (34-104) U/L Total Protein 7.0 (6.0-8.3) gm/dl Albumin 4.4 (3.4-5.0) gm/dl Globulin 2.6 (2.5-4.0) gm/dl Albumin/Globulin Ratio 1.7 (0.9-2) Lipase 7 L (11-82) U/L Urine Color Urine Appearance (Clear) Urine pH (4.5-7.5) Ur Specific [place] (1.000-1.030) Urine Protein (Negative) Urine Glucose (UA) (Negative) Urine Ketones (Negative) Urine Blood (Negative) Urine Nitrite (Negative) Urine Bilirubin (Negative) Urine Urobilinogen (Negative) Ur Leukocyte Esterase (Negative) Urine WBC (Auto) (0-5) /hpf Urine RBC (Auto) (0-2) /hpf U Hyaline Cast (Auto) (0-2) /lpf U Epithel Cells (Auto) (0-2) /hpf Urine Bacteria (Auto) (None Seen) Urine Mucus (None Prsent) Diagnostic Findings EXAM: CT ABD/PELVIS WO IV/ORAL CONTRAST DATE and TIME: 12/21/2023 3:51 pm HISTORY CLINICAL INFORMATION: r/o diverticulitis TECHNIQUE Oral Contrast:Oral contrast was not administered. IV Contrast: No intravenous contrast administered. Abdomen/Pelvis: without intravenous contrast COMPARISON None. FINDINGS LOWER CHEST: HEART(visualized): Mild calcified coronary artery plaque. LUNG BASES: Punctate right and left lower lobe calcified granulomas. ABDOMEN/PELVIS: LINES AND DEVICES: None. LIVER: Steatosis. Subcentimeter rim calcified capsular calcifications on the right lobe of the liver, possibly small dropped gallstones. BILE DUCTS: Unremarkable. GALLBLADDER: Cholecystectomy. PANCREAS: Unremarkable. SPLEEN: Unremarkable. ADRENALS: Unremarkable. KIDNEYS/URETERS: Cortical cysts. No calculus or hydronephrosis. BLADDER: Underdistended with mild circumferential wall thickening, possibly reflecting chronic bladder outlet obstruction in the setting of prostatomegaly. BOWEL: Dilated loops of ileum, with some loops containing fecalized material (8:348), measure up to 4.1 cm in diameter with transition point in the right lower quadrant (6:58). No pneumatosis. LYMPH NODES: No lymphadenopathy. VESSELS: Calcified atherosclerotic plaque. Engorged small-bowel vasa recta. REPRODUCTIVE ORGANS: Mild prostatomegaly. PERITONEUM/RETROPERITONEUM: Small volume free fluid centered in the right lower quadrant adjacent to dilated loops of small bowel and in the dependent pelvis. Five subcentimeter rim calcified structures in the dependent pelvis and a few in the right peritoneum may be dropped gallstones. ABDOMINAL WALL/SOFT TISSUES: Small fat containing supraumbilical ventral abdominal wall hernia. BONES: 2.7 cm lucent lesion centered in the left intertrochanteric region with thin sclerotic margin. Mild spinal degenerative changes. IMPRESSION IMPRESSION Small-bowel obstruction with transition point in the right lower quadrant and small volume free fluid. Hepatic steatosis. 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 (2) Abdominal pain Abdominal location: generalized Qualified Code(s): R10.84 - Generalized abdominal pain
--- NOTE | 2023-12-22 10:16 | XRay Report ---
XR KUB/Abdomen 1 view CLINICAL HISTORY: sbo TECHNIQUE: 1 view of the abdomen was obtained. Comparison: None available at the time of this dictation. FINDINGS: Lung bases are unremarkable. The osseous structures are grossly unremarkable. Multiple gas dilated lo ops of small bowel are seen. Small stool burden is seen. IMPRESSION: Multiple gas dilated loops of small bowel are seen compatible with small bowel obstruction. ACT 112: Negative or not required by law. Electronically signed by: William Turcios M.D. 12/22/2023 10:14 AM
--- OUTSIDE RECORDS SUMMARY | 2023-12-22 10:36 | External Medical Summary | Summary of Care ---
Author Name Unknown Organization [facility] Address [address] [place] [address] Phone [phone] Care Team Providers Care Direct Selling Counselor Name Role Phone Marcela Taylor MD Primary Care Provider + Reason for Visit * Reason Onset Date Comments Medication Refill 10/15/2023 Encounter Details Date Type Department Care Team (Late st Contact Info) Description 10/15/2023 Refill Family [facility] [address] [place] [address] Marcela Taylor MD [address] [facility] [place] [id number] Erectile dysfunction, unspecified erectile dysfunction type Allergies Active Allergy Reactions Criticality Noted Date Comments Cephalosporins 04/27/2002 keflex, lips swelled Penicillins 10/30/2002 ? rash documented as of this encounter (statuses as of 10/15/2023) Medications Medication Sig Dispensed Refills Start Date End Date Status Lisinopril-hydroCH LOROthiazide 10-12.5 MG Oral TabletIndications: HTN, goal below 140/90 Take 1 Tablet by mouth in the morning and 1 Tablet before bedtime. 180 Tablet 2 01/20/2023 Active Sildenafil Citrate 100 MG Oral Tablet (Viagra)Indication s:Erectile dysfunction, unspecified erectile dysfunction type 1/2 or 1 pill 1-4 hours before intercourse, no more than 1 dose in 24 hours. 30 Tablet 5 10/15/2023 Active Sildenafil Citrate 100 MG Oral Tablet (Viagra)Indication s:Erectile dysfunction, unspecified erectile dysfunction type 1/2 or 1 pill 1-4 hours before intercourse, no more than 1 dose in 24 hours. 30 Tablet 5 05/29/2022 10/15/2023 Discontinued (Refill) documented as of this encounter (statuses as of 10/15/2023) Active Problems Problem Noted Date Diagnosed Date Left thyroid nodule 07/07/2022 Overview: Per pt FNA in past. Chronic chest pain 05/23/2022 KARO (obstructive sleep apnea) 07/30/2020 Lichen aureus 05/06/2018 Overview: [facility] b/l. Well adult exam 11/02/2017 Overview: 06/18 thyroid nodule 1.4cm. Per pt, FNA benign in past. Nof/u needed. 06/18 colon hyperplastic/serrated? Polyps brigid 3y 06/17 neck mass--lipoma confirmed on CT/ On US. 05/19 PSA 1.4 He donates blood frequently he does not tolerate p.o. iron due to constipation 12/16 colon multiple polyps inc 13mm---PATH adenoma brigid 1y. Donates blood regularly. . Declined shingrix. Colonoscopy-- [place] [address] 1cm tubular adenoma. Other hyperplastic poyps. Colonoscopy ordered. 2014 EGD multiple gastric polyp benign. Minimal gastritis Chronic prostatitis 01/15/2011 Pulsatile tinnitus 01/15/2011 OBESITY, BMI 30-34 (SEE ACTUAL BMI) 06/20/2009 Overview: Per Obesity Taxonomy DYSLIPIDEMIA, GOAL TO BE DETERMINED 03/14/2009 Overview: Per Lipid Taxonomy. 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 Obesity, BMI not known 10/11/200606/20 Overview: Per Obesity Taxonomy documented as of this encounter (statuses as of 10/15/2023) Immunizations Name Administration Dates Next Due COVID-19 mRNA, LNP-s, No Pre serve, 2-Dose Series (Pfizer) 07/12/2020,06/21/2020 TDAP (age 10 and older)(Boostrix) 05/06/2018,05/2007 Zoster Vaccine Recombinant (Shingrix) 08/09/2020 ,05/23/2020 documented as of this encounter Social History Tobacco Use Types Packs/Day Years Used Date Smoking Tobacco: Former Cigarettes Q uit: 04/30/2002 Smokeless Tobacco: Never Alcohol Use Standard Drinks/Week Comments Yes 0 (1 standard drink = 0.6 oz pur e alcohol) rare PHQ-2 Answer Date Recorded PHQ Adult Total Score 0 05/29/2022 Hunger Vital Sign Answer Date Recorded Within the past 12 months, y ou worried that your food would run out before you got the money to buy more. Never true 09/26/19 23 Within the past 12 months, t he food you bought just didn't last and you didn't have money to get more. Never true 09/25/2022 Sex and Gender Information Value Date Recorded Sex Assigned at Male 05/29/2022 2:08 PM EST Gender Identity Male 05/29/2022 2:08 PM EST Sexual Orientation Straight 05/29/2022 2: 08 PM EST Job Start Date Occupation Industry Not on file Not on file Not on file documented as of this encounter Miscellaneous Notes * Telephone Encounter - Sakina Muse [facility] - 10/15/2023 1:41 PM EDT Signed Prescriptions: Disp Refills Sildenafil Citrate 100 MG Oral Tablet (Via*30 Tab*5 Si/2 or 1 pill 1-4 hours before intercourse, no more than 1 dose in 24 hours.Authorizing Provider: MARCELA TAYLOR User: SAKINA MUSE documented in this encounter Plan of Treatment Upcoming Encounters Date Type Department Care Team (Late st Contact Info) Description 11/02/2023 11:20 AM EDT Office Visit [facility] [address] [place] [phone] Karina Galarza DO [address] [place] [address] 01/07/2024 8:20 AM EDT Office Visit [facility] [address] [place] [phone] Marcela Taylor MD [address] [place] [phone] 06/16/2024 8:20 AM EDT Office Visit [facility] [address] [place] [address] Marcela Taylor MD [address] [place] [address] Scheduled Procedures Name Priority Associated Diagnoses Date/Ti me COLONOSCOPY FLEXIBLE PROXIMA L DIAGNOSTIC Recall History of colonic polyps Health Maintenance Due Date Last Done Comments Hepatitis B Vaccine (1 of 3 - 19+ 3-dose series) 1983 Cologuard 2009 Sigmoidoscopy 2009 Fecal Occult Blood Test 04/07/2014 04/07/2013 COVID-19 Vaccine (2022- season) 2022 07/12/2020, 06/21/2020 Depression Screening 05/30/2023 05/29/2022 Influenza Vaccine (FLU shot) (#1) 2023 GFR 05/14/2024 05/14/2023, 0309/2022, 03/11/2022, Additional history exists Albumin/Creatinine Ratio 06/02/2025 06/02/2022 Colonoscopy 06/26/2025 06/26/2022, 05/29, 12/22/2019, Additional history exists Colorectal Cancer Screening 06/26/2025 Diabetes Screening 05/14/2026 05/14/2023, 0 06/02/2022, 03/11/2022, Additional history exists Lipid Panel 05/30/2026 05/30/2021, 09/27, 07/27/2014, Additional history exists DTaP,Tdap,and Td Vaccines (3 - Td or Tdap) 05/06/2028 05/06/2018, 05/30/2007 Zoster Vaccines Completed 08/09/2020, 05/23/2020 RETIRED - COLONOSCOPY-ANNUAL AGES 18-100 Discontinued 06/26/2022, 06/26/2022, 12/22/2019, Additional history exists HPV (Gardasil) Vaccine Aged Out No lo nger eligible based on patient's age to complete this topic MENINGOCOCCAL (MENACTRA/MENVEO) Aged Out No longer eligible based on patient's age to complete this topic Pneumococcal Vaccine: Pediatrics (0 to 5 Years) and At-Risk Patients (6 to 64 Years) Aged Out No longer eligible based on patient's age to complete this topic documented as of this encounter Medical Devices Not on filedocumented as of this encounter Visit Diagnoses Diagnosis Erectile dysfunction, unspecified erectile dysfunction type documented in this encounter Care Teams Direct Selling Counselor Relationship Specialty Start Date End Date Marcela Taylor MD [address] [facility] [place] [address] PCP - General Family Medicine 07/14/17 documented as of this encounter
--- OUTSIDE RECORDS SUMMARY | 2023-12-22 10:36 | External Medical Summary ---
Author Name Unknown Address Unknown Organization [id number]:[facility] [place] [address] [place] [id number] Laboratory Report Ordering Provider Test Date Status BRANDON MEDRANO 08/19/2023 07:27:13 Final Observation Date Value Abnormality Reference (Units) Status Bacteria identified in Specimen by Culture 08/19/2023 07:27:13 No significant growth Final Test: Culture, Urine, Quanti tative
Specimen Source: Urine, Clean Catch
Specimen Type: Urine
Specimen Date: 08/19/2023726
Result Date: 08/20/2023920
Result Status: Final result
Resulting Lab: [facility] [place]
[address]
[place] [id number]

CULTURE

No significant growth

null Performing Location [facility] [place] [address] [place] [id number]
--- OUTSIDE RECORDS SUMMARY | 2023-12-22 10:36 | External Medical Summary ---
Author Name Unknown Address Unknown Organization [id number]:[facility] [place] [facility] - [address] [place] [address] Laboratory Report Ordering Provider Test Date Status BRANDON MEDRANO 08/19/2023 07:27:21 Final Observation Date Value Abnormality Reference (Units ) Status Color of Urine by Auto 08/19/2023 07:27:21 Yellow Light Yellow, Yellow, Dark Yellow Final Clarity, Urine 08/19/2023 07:27:21 Clear Clear Final Glucose [Mass/volume] in Urine by Automated test strip 08/19/2023 07:27:21 Negative Negative (mg/dL) Final Bilirubin.total [Presence] in Urine by Automated test strip 08/19/2023 07:27:21 Negative Negative Final Ketones [Mass/volume] in Urine by Automated test strip 08/19/2023 07:27:21 Negative Negative (mg/dL) Final Specific gravity, Urine 08/19/2023 07:27:21 1.025 1.003-1.030 Final Hemoglobin [Presence] in Urine by Automated test strip 08/19/2023 07:27:21 Negative Negative Final pH, Urine 08/19/2023 07:27:21 5.5 5.0-7.5 (Units) Final Protein [Mass/volume] in Urine by Automated test strip 08/19/2023 07:27:21 Negative Negative (mg/dL) Final Urobilinogen [Mass/volume] in Urine by Automated test strip 08/19/2023 07:27:21 0.2 0.2, 1.0 (mg/dL) Final Nitrite [Presence] in Urine by Automated test strip 08/19/2023 07:27:21 Negative Negative Final Leukocyte esterase [Presence] in Urine by Automated test strip 08/19/2023 07:27:21 Negative Negative Final Annotation Comment 08/19/2023 07:27:21 Final Screen negative - Microscopi c not performed. Performing Location [facility] [place] [facility] - [address] [place] [id number]
--- OUTSIDE RECORDS SUMMARY | 2023-12-22 10:36 | External Medical Summary | Summary of Care ---
Author Name Unknown Organization [facility] Address [address] [place] [address] Phone [phone] Care Team Providers Care Hospice Case Manager Name Role Phone Alan Oshea MD Primary Care Provider + Reason for Visit * Reason Onset Date Comments Health Maintenance 07/29/2023 Encounter Details Date Type Department Care Team (Late st Contact Info) Description 07/29/2023 Telephone Family Practice Health system [address] [facility] [place] [address] Alan [facility]a [facility] [address] [facility] [place] [phone] Health Maintenance Allergies Active Allergy Reactions Criticality Noted Date Comments Cephalosporins 04/27/2002 keflex, lips swelled Penicillins 10/30/2002 ? rash documented as of this encounter (statuses as of 07/29/2023) Medications Medication Sig Dispensed Refills Start Date End Date Status Sildenafil Citrate 100 MG Oral Tablet (Viagra)Indications:E rectile dysfunction, unspecified erectile dysfunction type 1/2 or 1 pill 1-4 hours before intercourse, no more than 1 dose in 24 hours. 30 Tablet 5 05/29/2022 Active Lisinopril-hydroCHLOR Othiazide 10-12.5 MG Oral TabletIndications:HTN , goal below 140/90 Take 1 Tablet by mouth in the morning and 1 Tablet before bedtime. 180 Tablet 2 01/20/2023 Active documented as of this encounter (statuses as of 07/29/2023) Active Problems Problem Noted Date Diagnosed Date Left thyroid nodule 07/07/2022 Overview: Per pt FNA in past. Chronic chest pain 05/23/2022 KARO (obstructive sleep apnea) 07/30/2020 Lichen aureus 05/06/2018 Overview: [facility] b/l. Well adult exam 11/02/2017 Overview: 06/18 [...] Donates blood regularly. . Declined shingrix. Colonoscopy-- 2014 multiple poly[address] 1cm tubular adenoma. [...] as of this encounter (statuses as of 07/29/2023) Resolved Problems Problem Noted Date Diagnosed Date Resolved Date Sprain of coccyx 12/01/2006 06/07/2012 Dyslipidemia, goal LDL below 160 10/11/2006 03/14/2009 Overview: Per Lipid Taxonomy. Obesity, BMI not known 10/11/200606/20 Overview: Per Obesity Taxonomy documented as of this encounter (statuses as of 07/29/2023) Immunizations Name Administration Dates Next Due COVID-19 [...] encounter Miscellaneous Notes * Telephone Encounter - Shanel Bagley [employer] - 07/29/2023 2:56 PM EDT Care Gaps Comprehensive Care Outreach Last Office/Telemedicine Visit: 06/11/2023 (in office), Visit date not found (telemedicine) Next Office Visit: 01/07/2024 Hemoglobin AIC Results: Lab Results Component Value Date/Time HEMOGLOBIN A1C - [facility] 5.6 05/09/2019 02:00 PM BP Readings from Last 1 Encounters: 07/06/23 124/78 Reviewed Health Maintenance below: Health Maintenance Topic Date Due Hepatitis B (1 of 3 - 19+ 3-dose series) Never done COVID-19 Vaccine (2022- season) 2022 Depression Screening 05/30/2023 Influenza Vaccine (FLU shot) (Season Ended) 2023 GFR 05/14/2024 Care Gap Outreach Action Taken: Outreach not indicated documented in this encounter Plan of Treatment Upcoming Encounters Date Type Department Care Team (Late st Contact Info) Description 10/04/2023 10:00 AM EDT [facility] Leah Santos [address] [place] [address] [facility] Leah [address] [place] [address] 11/02/2023 11:20 AM EDT Office Visit [facility] [address] [place] [phone] Karina Galarza DO [address] [place] [address] 01/07/2024 8:20 AM EDT Office Visit [facility] [address] [place] [address] Alan Oshea MD [address] [place] [address] 06/16/2024 8:20 AM EDT Office Visit [facility] [address] [place] [address] Alan Oshea MD [address] [place] [address] Scheduled Procedures Name Priority Associated Diagnoses Date/Ti me COLONOSCOPY FLEXIBLE PROXIMA L DIAGNOSTIC Recall History of colonic polyps Health Maintenance Due Date Last Done Comments Hepatitis B (1 of 3 - 19+ 3-dose series) 1983 Cologuard 2009 Sigmoidoscopy 2009 Fecal Occult Blood Test 04/07/2014 04/07/2013 COVID-19 Vaccine ( season) 2022 07/12/2020, 06/21/2020 Depression Screening 05/30/2023 05/29/2022 Influenza Vaccine (FLU shot) (Season Ended) 2023 GFR 05/14/2024 05/14/2023, 09/2022, 03/11/2022, Additional history exists Albumin/Creatinine Ratio 06/02/2025 [...] Discontinued 06/26/2022, 06/26/2022, 12/22/2019, Additional history exists GARDASIL-HPV IMMUNIZATION SERIES Aged Out No longer eligible based on [...] Not on filedocumented as of this encounter Care Teams Hospice Case Manager Relationship Specialty Start Date End Date Alan Oshea MD [address] [place] [address] PCP - General Family Medicine 07/14/17 documented as of this encounter
--- OUTSIDE RECORDS SUMMARY | 2023-12-22 10:36 | External Medical Summary | Summary of Care ---
Author Name Unknown Organization [facility] Address [address] [place] [address] Phone [phone] Care Team Providers Care Foiling Machine Adjuster Name Role Phone Alan Oshea MD Primary Care Provider + Reason for Visit * Reason Onset Date Comments Sleep Apnea Device 05/25/2023 Encounter Details Date Type Department Care Team (Late st Contact Info) Description 05/25/2023 Telephone Sleep Lab, [facility] [address] [place], [place] [phone] Karina Galarza, DO [address] [place] [address] Sleep Apnea Device Allergies Active Allergy Reactions Criticality Noted Date Comments Cephalosporins 04/27/2002 keflex, lips swelled Penicillins 10/30/2002 ? rash documented as of this encounter (statuses as of 06/29/2023) Medications Medication Sig Dispensed Refills Start Date End Date Status Sildenafil Citrate 100 MG Oral Tablet (Viagra)Indication s:Erectile dysfunction, unspecified erectile dysfunction type 1/2 or 1 pill 1-4 hours before intercourse, no more than 1 dose in 24 hours. 30 Tablet 5 05/29/2022 Active Lisinopril-hydroCH LOROthiazide 10-12.5 MG Oral TabletIndications: HTN, goal below 140/90 Take 1 Tablet by mouth in the morning and 1 Tablet before bedtime. 180 Tablet 2 01/20/2023 Active Promethazine-DM 6.25-15 MG/5ML Oral SyrupIndications:U pper respiratory tract infection, unspecified type Take 5 mL by mouth 4 times a day as needed for Cough. 60 mL 0 03/30/2023 06/11/2023 Discontinued (Medication List Clean Up) documented as of this encounter (statuses as of 06/29/2023) Active Problems Problem Noted Date Diagnosed Date [...] Donates blood regularly. . Declined shingrix. Colonoscopy-- [place] [address] multiple [address] 1cm tubular adenoma. [...] as of this encounter (statuses as of 06/29/2023) Resolved Problems Problem Noted Date Diagnosed Date Resolved Date Sprain of coccyx 12/01/2006 06/07/2012 Dyslipidemia, goal LDL below 160 10/11/2006 03/14/2009 Overview: Per Lipid Taxonomy. Obesity, BMI not known 10/11/200606/20 Overview: Per Obesity Taxonomy documented as of this encounter (statuses as of 06/29/2023) Immunizations Name Administration Dates Next Due COVID-19 [...] encounter Miscellaneous Notes * Telephone Encounter - Radha Gallagher, RPSGT - 05/25/2023 2:37 PM EST Data downloaded, verified and scored. Physician notified that the OCST study is ready for review and interpretation. HST ordered by @ [facility]. L out: 9:16 pm to L on: 5:10 am KERRIE: 15.3 (3%) Lowest SpO2: 77% 11.5 (4%) There were only 3 hours and 28 minutes of good recording time out of 7 hours and 58 minutes of recording time. Study routed to in [place]. ESS: n/a NOTE: if you want to use this data use a 52 modifier. Usually we would repeat this study since it is under 4 hours. I left the decision up to you. documented in this encounter Plan of Treatment Upcoming Encounters Date Type Department Care Team (Late st Contact Info) Description 07/06/2023 10:20 AM EDT Office Visit [facility] Disorders Ctr [facility] [address] [place] [phone] Karina Galarza DO [address] [place] [address] 01/07/2024 8:20 AM EDT Office Visit [facility] [address] [place] [address] Alan Oshea MD [address] [place] [address] 06/16/2024 8:20 AM EDT Office Visit [facility] [address] [place] [phone] Alan Oshea MD [address] [place] [address] Scheduled Procedures Name Priority Associated Diagnoses Date/Ti me COLONOSCOPY FLEXIBLE PROXIMA L DIAGNOSTIC Recall History of colonic polyps Health Maintenance Due Date Last Done Comments Hepatitis B (1 of 3 - 19+ 3-dose series) 1984 COVID-19 Vaccine ( - 2022- season) 2022 07/12/2020, 06/21/2020 Depression Screening 05/30/2023 05/29/2022 Influenza Vaccine (FLU shot) (Season Ended) 2023 GFR 05/14/2024 05/14/2023, 09/2022, 03/11/2022, Additional history exists Albumin/Creatinine Ratio 06/02/2025 06/02/2022 COLONOSCOPY-EVERY 3 YRS AGES 18-100 06/26/2025 06/26/2022, 06/26/2022, 12/22/2019, Additional history exists Diabetes Screening 05/14/2026 05/14/2023, 0 06/02/2022, 03/11/2022, Additional history exists Lipid Panel 05/30/2026 05/30/2021, 09/27, 07/27/2014, Additional history exists DTaP,Tdap,and Td Vaccines (3 - Td or Tdap) 05/06/2028 05/06/2018, 05/30/2007 Zoster Vaccines Completed 08/09/2020, 05/23/2020 COLONOSCOPY-ANNUAL AGES 18-100 Discontinued 06/26/2022, 06/26/2022, 12/22/2019, [...] as of this encounter Visit Diagnoses Diagnosis KARO (obstructive sleep apnea)- Primary Obstructive sleep apnea (adult) (pediatric) Nocturnal hypoxemia Hypoxemia documented in this encounter Care Teams Foiling Machine Adjuster Relationship Specialty Start Date End Date Alan Oshea MD [address] [place] [address] PCP - General Family Medicine 07/14/17 documented as of this encounter
--- OUTSIDE RECORDS SUMMARY | 2023-12-22 10:36 | External Medical Summary | Summary of Care ---
Author Name Unknown Organization [facility] Address [address] [place] [address] Phone [phone] Care Team Providers Care Farm Crops Teacher Name Role Phone Alan Oshea MD Primary Care Provider + Reason for Visit * Reason Comments Follow Up Review Sleep Study HST Encounter Details Date Type Department Care Team (Late st Contact Info) Description 07/06/2023 10:20 AM EDT Office Visit Sleep Disorders Ctr Leah Santos Lovely [address] [place] [phone] Karina Galarza DO [address] [facility] [address] KARO (obstructive sleep apnea)*; Nocturnal hypoxemia Allergies Active Allergy Reactions Criticality Noted Date Comments Cephalosporins 04/27/2002 keflex, lips swelled Penicillins 10/30/2002 ? rash documented as of this encounter (statuses as of 07/06/2023) Medications Medication Sig Dispensed Refills Start Date [...] as of this encounter (statuses as of 07/06/2023) Active Problems Problem Noted Date Diagnosed Date [...] Donates blood regularly. . Declined shingrix. Colonoscopy-- [place] 2014 multiple polyps Path 1cm tubular adenoma. [...] as of this encounter (statuses as of 07/06/2023) Resolved Problems Problem Noted Date Diagnosed Date Resolved Date Sprain of coccyx 12/01/2006 06/07/2012 Dyslipidemia, goal LDL below 160 10/11/2006 03/14/2009 Overview: Per Lipid Taxonomy. Obesity, BMI not known 10/11/200606/20 Overview: Per Obesity Taxonomy documented as of this encounter (statuses as of 07/06/2023) Immunizations Name Administration Dates Next Due COVID-19 mRNA, LNP-s, No Pre serve, 2-Dose Series (Pfizer) 07/12/2020,06/21/2020 TDAP (age 10 and older)(Boostrix) 05/06/2018,05/2007 Zoster Vaccine Recombinant (Shingrix) 08/09/2020 ,05/23/2020 documented as of this encounter Social History Tobacco Use Types Packs/Day Years Used Date Smoking Tobacco: Former Cigarettes Q uit: 04/30/2002 Smokeless Tobacco: Never Tobacco Cessation:Counseling Given: Not Answered Alcohol Use Standard Drinks/Week Comments Yes 0 [...] on file documented as of this encounter Last Filed Vital Signs Vital Sign Reading Time Taken Comments Blood Pressure 124/78 07/06/2023 10:18 AM EDT Pulse 85 07/06/2023 10:18 AM EDT Temperature 36 C (96.8 F) 07/06/2023 10:18 AM EDT Respiratory Rate 16 07/06/2023 10:18 AM EDT Oxygen Saturation 97% 07/06/2023 10:18 AM EDT Inhaled Oxygen Concentration - - Weight 101.6 kg (224 lb) 07/06/2023 10:18 AM EDT Height 175.3 cm (5' 9") 07/06/2023 10:18 AM EDT Body Mass Index 33.08 07/06/2023 10:18 AM EDT documented in this encounter Progress Notes * Karina Galarza, DO - 07/06/2023 10:25 AM EDT Sleep Medicine Follow-Up Clinic Note HISTORY: Mr. Byron Meza is a 58 year old male in clinic today for results of the recent sleep study. He had tried the eXcite KARO. He was having trouble with vendors trying to see him mouth pieces for higher costs. He tried it consistently for 30 days. Didn't feel like it was helping sufficiently. noticed a slight improvement. Feels less sleeping than after his knee surgery. Mr. Meza does not want to continue with his eXcite KARO. He plans to take a month long trip during which he plans to lose weight, and he is interested to see if that will improve his KARO. Travel Screening Question 07/06/2023 10:15 AM EDT - Filed by Patient Do you have any of the following new or worsening symptoms? None of these Have you recently been in contact with someone who was sick? No / Unsure Home Sleep Apnea Test (HSAT) 05/24/23: KERRIE 15.3 O2 Fausto 77 % <89% O2 27.6 mins Home Sleep Apnea Test (HSAT) 10/15/22: W/ inconsistent eXcite KARO use KERRIE 19.8 O2 Fausto 82 % <89% O2 23.7 mins Dx Polysomnogram 07/27/20: BMI 33.67 AHI 12.4 (CMS/medicare criteria used) Min O2 76 % <89% O2 28 min(s) PLMI 16.3 Past Medical History: Diagnosis Date Abdominal pain Adenomatous colon polyp Chronic prostatitis 01/15/2011 compound congenital melanocytic nevus,upper back 04/27/02 05/06/2002 Dyslipidemia, goal to be determined 03/14/2009 Esophageal reflux Fatty liver Hemorrhoids HTN, goal below 140/90 Hypertension, benign Hyperlipemia MIGRAINE NOS, NOT INTRACTABLE 10/30/2002 OBESITY, BMI 30-34 (SEE ACTUAL BMI) 06/20/2009 Pulsatile tinnitus 01/15/2011 Sleep apnea, obstructive Sprain of coccyx 12/01/2006 Past Surgical History: Procedure Laterality Date COLONOSCOPY, DIAGNOSTIC (RECTUM) 12/22/2019 adenomatous polyps, diverticulosis, repeat 1 yr / COLONOSCOPY FLEXIBLE PROXIMAL DIAGNOSTIC performed by Adrián Aguilar MD at [facility]COPY [facility] COLONOSCOPY, DIAGNOSTIC (RECTUM) 06/26/2022 diverticulosis/recall 3 years/COLONOSCOPY FLEXIBLE PROXIMAL DIAGNOSTIC performed by Adrián Aguilar MD at ENDOSCOPY [facility] COLONOSCPOY E/ ENDOSCOPIC US 12/09/2014 benign gastric polyp, 4hyperplastic and 1 tubuloadenmoa IR BIOPSY 09/10/2021 OTHER Right 04/07/2022 right knee medial meniscectomy Dr Estrada. REMOVAL OF APPENDIX REMOVE CATARACT, INSERT LENS PROSTH 07/06 & 08/05 -[facility] REMOVE GALLBLADDER 1994 SINUS SURGERY PROCEDURE NEC Bilateral 2002 Dr Johnson b/l sinus surgery [facility] Current Outpatient Medications Medication Sig Dispense Refill Sildenafil Citrate 100 MG Oral Tablet (Viagra) 1/2 or 1 pill 1-4 hours before intercourse, no more than 1 dose in 24 hours. 30 Tablet 5 Lisinopril-hydroCHLOROthiazide 10-12.5 MG Oral Tablet Take 1 Tablet by mouth in the morning and 1 Tablet before bedtime. 180 Tablet 2 No current facility-administered medications for this visit. Review of patient's allergies indicates: Allergen Reactions Cephalosporins keflex, lips swelled Penicillins ? rash PHYSICAL EXAM: BP 124/78 | Pulse 85 | Temp 36 C (96.8 F) (Tympanic) | Resp 16 | Ht 1.753 m (5' 9") | Wt 101.6 kg (224 lb) | SpO2 97% | BMI 33.08 kg/m | BSA 2.22 m Constitutional: Alert, oriented in no acute distress Skin: no markings on face where mask fits Chest: Normal respiratory effort at rest Neuro: Normal speech and comprehension Psych: Appropriate mood and affect HEENT: Retrognathia ASSESSMENT/PLAN: Obstructive Sleep Apnea We went over the diagnosis of obstructive sleep apnea with the patient, as well as the possible treatment options. Patient opted to try weight loss at this point WatchPAT after weight loss Even a mild to moderate weight loss should result in significant improvement in the patients nocturnal respiratory events. Strenuous exercise, which activates the sympathetic nervous system (adrenaline system) not only helps with weight loss, glucose, and mood, but also improves sleep quality, and upper respiratory muscle tone during sleep. Avoid driving, operating heavy machinery or engaging in any activity that requires full alertness if feeling sleepy, drowsy or otherwise impaired. Follow-up with Sleep Medicine in 4 weeks after sleep testing. Karina Galarza, DO I spent a total of 30-39 minutes (exact time 35 mins) on the date of service in preparation, delivery, and documentation of the care provided to Byron Meza excluding any time spent in the performance of separately billed services. documented in this encounter Plan of Treatment Upcoming Encounters Date Type Department Care Team (Late st Contact Info) Description 10/04/2023 10:00 AM EDT PulmDiagnostic Sleep Lab [facility] [address] [place] [address] [facility] Sleep Med Home Study [facility] [address] [place] [address] 11/02/2023 11:20 AM EDT Office Visit Sleep Disorders Ctr [facility] [address] [place] [phone] Karina Galarza DO [address] [place] [address] 01/07/2024 8:20 AM EDT Office Visit [facility] [address] [place] [address] [address] Alan Oshea MD [address] [place] [address] 06/16/2024 8:20 AM EDT Office Visit [facility] [address] [place] [phone] Alan Oshea MD [address] [place] [address] Scheduled Orders Name Type Priority Associated Diagnoses Orde r Schedule TIMED SLEEP STUDY, UNATTEND, HR/O2 SAT/RESP Procedures Routine KARO (obstructive sleep apnea) Ordered: 07/06/2023 Scheduled Procedures Name Priority Associated Diagnoses Date/Ti me COLONOSCOPY FLEXIBLE PROXIMA L DIAGNOSTIC Recall History of colonic polyps Health Maintenance Due Date Last Done Comments Hepatitis B (1 of 3 - 19+ 3-dose series) 1983 COVID-19 Vaccine (3 - 2022- season) 2022 07/12/2020, 06/21/2020 Depression [...] Hypoxemia documented in this encounter Care Teams Farm Crops Teacher Relationship Specialty Start Date End Date Alan Oshea MD [address] [address] PCP - General Family Medicine 07/14/17 documented as of this encounter
--- OUTSIDE RECORDS SUMMARY | 2023-12-22 10:36 | External Medical Summary | Summary of Care ---
Author Name Unknown Organization [facility] Address [address] [place] [address] Phone [phone] Care Team Providers Care Senior Escrow Officer Name Role Phone Alan Oshea MD Primary Care Provider + Reason for Visit * Reason Comments Review Sleep Study Encounter Details Date Type Department Care Team (Latest Contact Info) Description 10/04/2023 10:00 AM EDT PulmDiagnostic Sleep Lab Leah Santos [address] [facility] [place] [address] Tom Sleep Med Home Study [facility] [address] [place] [address] KARO (obstructive sleep apnea)* Allergies Active Allergy Reactions Criticality Noted Date Comments Cephalosporins 04/27/2002 keflex, lips swelled Penicillins 10/30/2002 ? rash documented as of this encounter (statuses as of 10/19/2023) Medications Medication Sig Dispensed Refills Start Date End Date Status Lisinopril-hydroCHLO ROthiazide 10-12.5 MG Oral TabletIndications:HT N, goal below 140/90 Take 1 Tablet by mouth in the morning and 1 Tablet before bedtime. 180 Tablet 2 01/20/2023 Active documented as of this encounter (statuses as of 10/19/2023) Active Problems Problem Noted Date Diagnosed Date Left thyroid nodule 07/07/2022 Overview: Per pt FNA in past. Chronic chest pain 05/23/2022 KARO (obstructive sleep apnea) 07/30/2020 Lichen aureus 05/06/2018 Overview: Armand tripathi/brea. Well adult exam 11/02/2017 Overview: 06/18 thyroid nodule 1.4cm. Per pt, FNA benign in past. Nof/u needed. 06/18 colon hyperplastic/serrated? Polyps brigid 3y 06/17 neck mass--lipoma confirmed on CT/ On US. 05/19 PSA 1.4 He donates blood frequently he does not tolerate p.o. iron due to constipation 12/16 colon multiple polyps inc 13mm---PATH adenoma brigid 1y. Donates blood regularly. . Declined shingrix. Colonoscopy-- [place] [address] 1cm tubular adenoma. [...] as of this encounter (statuses as of 10/19/2023) Resolved Problems Problem Noted Date Diagnosed Date Resolved Date Sprain of coccyx 12/01/2006 06/07/2012 Dyslipidemia, goal LDL below 160 10/11/2006 03/14/2009 Overview: Per Lipid Taxonomy. Obesity, BMI not known 10/11/200606/20 Overview: Per Obesity Taxonomy documented as of this encounter (statuses as of 10/19/2023) Immunizations Name Administration Dates Next Due COVID-19 [...] money to buy more. Never true 09/26/19 Within the past 12 months, t he [...] on file documented as of this encounter Progress Notes * Karina Galarza DO - 10/19/2023 2:51 PM EDT Encounter for billing WatchPAT WatchPAT home sleep apnea test report will be uploaded, viewable through Media attached to the order and/or via scans. documented in this encounter Plan of Treatment Upcoming Encounters Date Type Department Care Team (Late st Contact Info) Description 11/02/2023 11:20 AM EDT Office Visit Sleep Disorders Ctr [facility] [address] [phone] Karina Galarza DO [address] [place] [address] 01/07/2024 8:20 AM EDT Office Visit Family Practice [facility] [address] [place] [address] Alan Oshea MD [address] [place] [address] 06/16/2024 8:20 AM EDT Office Visit Family Practice [facility] [address] [place] [address] Alan Oshea MD [address] [place] [address] Scheduled Orders Name Type Priority Associated Diagnoses [...] (FLU shot) (#1) 2023 GFR 05/14/2024 05/14/2023, 03/0 09/2022, 03/11/2022, Additional history exists Albumin/Creatinine Ratio 06/02/2025 06/02/2022 Colonoscopy 06/26/2025 06/26/2022, 033 03/2022, 12/22/2019, Additional history exists Colorectal Cancer Screening 06/26/2025 Diabetes Screening 05/14/2026 05/14/2023, 0 06/02/2022, 03/11/2022, Additional history exists Lipid Panel 05/30/2026 05/30/2021, 0709/2016, 07/27/2014, Additional history exists DTaP,Tdap,and Td Vaccines [...] apnea)- Primary Obstructive sleep apnea (adult) (pediatric) documented in this encounter Care Teams Senior Escrow Officer Relationship Specialty Start Date End Date Alan Oshea MD [address] [place] [address] PCP - General Family Medicine 07/14/17 documented as of this encounter
--- OUTSIDE RECORDS SUMMARY | 2023-12-22 10:36 | External Medical Summary | Summary of Care ---
Author Name Unknown Organization [facility] Address [address] [place] [address] Phone [phone] Care Team Providers Care Health Science Instructor Name Role Phone Alan Oshea MD Primary Care Provider + Reason for Visit * Reason Comments Re-Check Just started using C PAP last night. Going to see if cpap helps bp. Encounter Details Date Type Department Care Team (Latest Contact Info) Description 12/15/2023 7:20 AM EDT Office Visit Family Practice [facility] [address] [place] [address] Leidy Talbot CRNP [address] [facility] [address] Hyperlipidemia, unspecified hyperlipidemia type*; HTN, goal below 140/90; KARO (obstructive sleep apnea) Allergies Active Allergy Reactions Criticality Noted Date Comments Cephalosporins 04/27/2002 keflex, lips swelled Penicillins 10/30/2002 ? rash documented as of this encounter (statuses as of 12/15/2023) Medications Medication Sig Dispensed Refills Start Date End Date Status Lisinopril-hydroCHLORO thiazide 10-12.5 MG Oral TabletIndications:HTN, goal below 140/90 Take 1 Tablet by mouth in the morning and 1 Tablet before bedtime. 180 Tablet 2 01/20/2023 Active Sildenafil Citrate 100 MG Oral Tablet (Viagra)Indications:Er ectile dysfunction, unspecified erectile dysfunction type 1/2 or 1 pill 1-4 hours before intercourse, no more than 1 dose in 24 hours. 30 Tablet 5 10/15/2023 Active Atorvastatin Calcium 10 MG Oral Tablet (Lipitor)Indications:H yperlipidemia, unspecified hyperlipidemia type Take 1 Tablet by mouth in the morning. 90 Tablet 3 12/15/2023 Active documented as of this encounter (statuses as of 12/15/2023) Active Problems Problem Noted Date Diagnosed Date [...] Donates blood regularly. . Declined shingrix. Colonoscopy-- [place] 2014 multiple polyps Path 1cm tubular adenoma. [...] as of this encounter (statuses as of 12/15/2023) Resolved Problems Problem Noted Date Diagnosed Date Resolved Date Sprain of coccyx 12/01/2006 06/07/2012 Dyslipidemia, goal LDL below 160 10/11/2006 03/14/2009 Overview: Per Lipid Taxonomy. Obesity, BMI not known 10/11/200606/20 Overview: Per Obesity Taxonomy documented as of this encounter (statuses as of 12/15/2023) Immunizations Name Administration Dates Next Due COVID-19 [...] Sign Reading Time Taken Comments Blood Pressure 104/60 12/15/2023 7:10 AM EDT Pulse 62 12/15/2023 7:10 AM EDT Temperature - - Respiratory Rate - - Oxygen Saturation - - Inhaled Oxygen Concentration - - Weight 104.4 kg (230 lb 2 oz) 12/15/2023 7:10 AM EDT Height - - Body Mass Index 33.98 11/02/2023 10:57 AM EDT documented in this encounter Progress Notes * Leidy Talbot CRNP - 12/15/2023 7:19 AM EDT Images from the original note were not included. Follow up Family Medicine Visit History of Present Illness Byron Meza is a very pleasant 58 year old male with PMH listed below presenting with elevatedcholesterol. 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 2 adults kids, 2 twin teens (start [employer]) Other Topics Concern Not on file Social History Narrative Not on file Social Determinants of Health Financial Resource Strain: Not on file Food Insecurity: No Food Insecurity (09/25/2022) Hunger Vital Sign Worried About Running Out of Food in the Last Year: Never true Ran Out of Food in the Last Year: Never true Transportation Needs: Not on file Social Connections: Unknown (12/15/2023) Social Connections How often do you feel lonely or isolated from those around you? (Adult - for ages 18 years and over): Not on file Housing Stability: Not on file PMH: Past Medical History: Diagnosis Date Abdominal pain [...] performed by Adrián Aguilar MD at ENDOSCOPY [facility] COLONOSCOPY, DIAGNOSTIC (RECTUM) 06/26/2022 diverticulosis/recall 3 years/COLONOSCOPY FLEXIBLE PROXIMAL DIAGNOSTIC performed by Adrián Aguilar MD at [facility] COLONOSCPOY E/ ENDOSCOPIC US 12/09/2014 benign gastric polyp, 4hyperplastic and 1 tubuloadenmoa IR BIOPSY 09/10/2021 OTHER Right 04/07/2022 right knee medial meniscectomy Dr Estrada. REMOVAL OF APPENDIX REMOVE CATARACT, INSERT LENS PROSTH 07/06 & 08/05 -[facility] REMOVE GALLBLADDER 1994 SINUS SURGERY PROCEDURE NEC Bilateral 2002 Dr Johnson b/l sinus surgery [facility] Current Outpatient Medications Medication Sig Dispense [...] Cephalosporins keflex, lips swelled Penicillins ? rash Most Recent Immunizations Administered Date(s) Administered COVID-19 mRNA, LNP-s, No Preserve, 2-Dose Series ([employer]) 07/12/2020 TDAP (age 10 and older)(Boostrix) 05/06/2018 Zoster Vaccine Recombinant (Shingrix) 08/09/2020 Review of Systems: Physical Exam BP 104/60 | Pulse 62 | Wt 104.4 kg (230 lb 2 oz) | BMI 33.98 kg/m | BSA 2.25 m Physical Exam Constitutional: Appearance: Normal appearance. HENT: Head: Normocephalic. Cardiovascular: Rate and Rhythm: Normal rate and regular rhythm. Pulmonary: Effort: Pulmonary effort is normal. Breath sounds: Normal breath sounds. Musculoskeletal: General: No swelling. Cervical back: Neck supple. Skin: General: Skin is warm. Neurological: Mental Status: He is alert and oriented to person, place, and time. Psychiatric: Mood and Affect: Mood normal. Assessment and Plan 1. Hyperlipidemia, unspecified hyperlipidemia type Discussed benefits, risks, side effects, alternatives. - Atorvastatin Calcium 10 MG Oral Tablet (Lipitor); Take 1 Tablet by mouth in the morning. Dispense: 90 Tablet; Refill: 3 - HEPATIC FUNCTION PANEL - LIPID PANEL WITH DIRECT LDL IF TG IS HIGH 2. HTN, goal below 140/90 Cont lisinopril/hctz 3. KARO (obstructive sleep apnea) Cont cpap Wrap-Up I have advised the patient to call our office with any worsening or new symptoms. I spent a total of 20-29 minutes (exact time 20 mins) on the date of service in preparation, delivery, and documentation of the care provided to Byron Meza excluding any time spent in the performance of separately billed services. Leidy Talbot, MSN, SYDNI [facility] documented in this encounter Plan of Treatment Upcoming Encounters Date Type Department Care Team (Late st Contact Info) Description 01/07/2024 8:20 AM EDT Office Visit [facility] [address] [address] Alan Oshea MD [address] [place] [address] 06/06/2024 10:00 AM EDT Office Visit Sleep Disorders Ctr [facility] [address] [phone] Karina Galarza DO [address] [place] [address] 06/16/2024 8:20 AM EDT Office Visit [facility] [address] [address] Alan Oshea MD [address] [place] [address] Scheduled Orders Name Type Priority Associated Diagnoses Orde r Schedule HEPATIC FUNCTION PANEL Lab Routine Hyperlipidemia, unspecified hyperlipidemia type Ordered: 12/15/2023 LIPID PANEL WITH DIRECT LDL IF TG IS HIGH Lab Routine Hyperlipidemia, unspecified hyperlipidemia type Ordered: 12/15/2023 Scheduled Procedures Name Priority Associated Diagnoses Date/Ti me COLONOSCOPY FLEXIBLE PROXIMA L DIAGNOSTIC Recall History of colonic polyps Health Maintenance Due Date Last Done Comments Hepatitis B Vaccine (1 of - 19+ 3-dose series) 1984 Cologuard 2009 Sigmoidoscopy 2009 Fecal Occult Blood Test 04/07/2014 04/07/2013 Depression Screening 05/30/2023 05/29/2022 COVID-19 Vaccine (2023- season) 2023 07/12/2020, 06/21/2020 Influenza Vaccine (FLU shot) (#1) 2023 GFR 05/14/2024 05/14/2023, 03/0 09/2022, 03/11/2022, Additional history exists Albumin/Creatinine Ratio 06/02/2025 06/02/2022 Colonoscopy 06/26/2025 06/26/2022, 05/29, 12/22/2019, Additional history exists Colorectal Cancer Screening 06/26/2025 Diabetes Screening 05/14/2026 05/14/2023, 0 06/02/2022, 03/11/2022, Additional history exists DTap/Tdap Vaccines (3 - Td or Tdap) 05/06/2028 05/06/2018, 05/30/2007 Lipid Panel 11/18/2028 11/19/2023, 03/0 06/2021, 10/22/2016, Additional history exists Zoster Vaccines Completed 08/09/2020, 05/23/2020 RETIRED - [...] as of this encounter Visit Diagnoses Diagnosis Hyperlipidemia, unspecified hyperlipidemia type- Primary HTN, goal below 140/90 Unspecified essential hypertension KARO (obstructive sleep apnea) Obstructive sleep apnea (adult) (pediatric) documented in this encounter Care Teams Health Science Instructor Relationship Specialty Start Date End Date Alan Oshea MD [address] [place] [address] PCP - General Family Medicine 07/14/17 documented as of this encounter"
--- OUTSIDE RECORDS SUMMARY | 2023-12-22 10:36 | External Medical Summary | Summary of Care ---
Author Name Unknown Organization [facility] Address [address] [place] [address] Phone [phone] Care Team Providers Care Drier Operator Name Role Phone Alan Oshea MD Primary Care Provider + Reason for Visit * Reason Onset Date Comments Other 11/02/2023 DME order Encounter Details Date Type Department Care Team (Late st Contact Info) Description 11/02/2023 Telephone Sleep Disorders Ctr Leah [place] [address] [place] [address] Karina Galarza DO [address] [place] [place] [address] Other (DME order ) Allergies Active Allergy Reactions Criticality Noted Date Comments Cephalosporins 04/27/2002 keflex, lips swelled Penicillins 10/30/2002 ? rash documented as of this encounter (statuses as of 11/02/2023) Medications Medication Sig Dispensed Refills Start Date End Date Status Lisinopril-hydroCHLOR Othiazide 10-12.5 MG Oral TabletIndications:HTN , goal below 140/90 Take 1 Tablet by mouth in the morning and 1 Tablet before bedtime. 180 Tablet 2 01/20/2023 Active Sildenafil Citrate 100 MG Oral Tablet (Viagra)Indications:E rectile dysfunction, unspecified erectile dysfunction type 1/2 or 1 pill 1-4 hours before intercourse, no more than 1 dose in 24 hours. 30 Tablet 5 10/15/2023 Active documented as of this encounter (statuses as of 11/02/2023) Active Problems Problem Noted Date Diagnosed Date [...] Donates blood regularly. . Declined shingrix. Colonoscopy-- [place] [address] poly[address] 1cm tubular adenoma. [...] as of this encounter (statuses as of 11/02/2023) Resolved Problems Problem Noted Date Diagnosed Date Resolved Date Sprain of coccyx 12/01/2006 06/07/2012 Dyslipidemia, goal LDL below 160 10/11/2006 03/14/2009 Overview: Per Lipid Taxonomy. Obesity, BMI not known 10/11/200606/20 Overview: Per Obesity Taxonomy documented as of this encounter (statuses as of 11/02/2023) Immunizations Name Administration Dates Next Due COVID-19 [...] encounter Miscellaneous Notes * Telephone Encounter - Nette Rangel OSA - 11/02/2023 2:50 PM EDT DME order for CPAP submitted to [facility]. documented in this encounter Plan of Treatment Upcoming Encounters Date Type Department Care Team (Late st Contact Info) Description 01/07/2024 8:20 AM EDT Office Visit Family Practice [facility] [address] [address] Alan Oshea MD [address] [address] 06/06/2024 10:00 AM EDT Office Visit Sleep Disorders Ctr [facility] [address] [place] [phone] Karina Galarza DO [address] [place] [address] 06/16/2024 8:20 AM EDT Office Visit Family Practice [facility] [address] [place] [address] Alan Oshea MD [address] [place] [address] Scheduled Procedures Name Priority Associated Diagnoses Date/Ti [...] filedocumented as of this encounter Care Teams Drier Operator Relationship Specialty Start Date End Date Alan Oshea MD [address] [place] [address] PCP - General Family Medicine 07/14/17 documented as of this encounter
--- OUTSIDE RECORDS SUMMARY | 2023-12-22 10:36 | External Medical Summary | Summary of Care ---
Author Name Unknown Organization [facility] Address [address] [place] [address] Phone [phone] Care Team Providers Care Occupational Therapy Supervisor Name Role Phone Alan Oshea MD Primary Care Provider + Reason for Visit * Reason Onset Date Comments Test Results 08/21/202308/19 Encounter Details Date Type Department Care Team (Late st Contact Info) Description 08/21/2023 Telephone Family Practice [facility] [address] [address] [facility] [place] [address] Alan Oshea MD [address] [facility] [place] [address] Test Results (08/19/) Allergies Active Allergy Reactions Criticality Noted Date Comments Cephalosporins 04/27/2002 keflex, lips swelled Penicillins 10/30/2002 ? rash documented as of this encounter (statuses as of 08/24/2023) Medications Medication Sig Dispensed Refills Start Date [...] as of this encounter (statuses as of 08/24/2023) Active Problems Problem Noted Date Diagnosed Date [...] as of this encounter (statuses as of 08/24/2023) Resolved Problems Problem Noted Date Diagnosed Date Resolved Date Sprain of coccyx 12/01/2006 06/07/2012 Dyslipidemia, goal LDL below 160 10/11/2006 03/14/2009 Overview: Per Lipid Taxonomy. Obesity, BMI not known 10/11/200606/20 Overview: Per Obesity Taxonomy documented as of this encounter (statuses as of 08/24/2023) Immunizations Name Administration Dates Next Due COVID-19 [...] encounter Miscellaneous Notes * Telephone Encounter - Nancy Flores LPN - 08/24/2023 3:38 PM EDT Patient aware and verbalized understanding. Symptoms have resolved. * Telephone Encounter - Jarvis Lui RN - 08/24/2023 3:32 PM EDT Second attempt made to call patient and left message to return call to the dedicated nurse call center. Please see Dr. Oshea's previous message. * Telephone Encounter - Trista Leung LPN - 08/21/2023 2:07 PM EDT Called, left message for patient to return call. Thank you * Telephone Encounter - Alan Oshea MD - 08/21/2023 1:07 PM EDT Call pt. Urine normal, no UTI seen. How are his pelvic symptoms? If still present, I can start cipro for possible prostatitis, and he can schedule appt any providerfor prostate exam documented in this encounter Plan of Treatment Upcoming Encounters Date Type Department Care Team (Late st Contact Info) Description 10/04/2023 10:00 AM EDT PulmDiagnostic Sleep Lab [facility] [address] [place] [address] Santos, Sleep Med Home Study [facility] [address] [place] [address] 11/02/2023 11:20 AM EDT Office Visit Sleep Disorders Ctr [facility] [address] [place] [address] Karina Galarza DO [address] [place] [address] 01/07/2024 8:20 AM EDT Office Visit [facility] [address] [place] [address] Alan Oshea MD [address] [place] [address] 06/16/2024 8:20 AM EDT Office Visit [facility] [address] [place] [address] Alan Oshea MD [address] [place] [address] Scheduled Procedures Name Priority Associated Diagnoses Date/Ti me COLONOSCOPY FLEXIBLE PROXIMA L DIAGNOSTIC Recall History of colonic polyps Health Maintenance Due Date Last Done Comments Hepatitis B (1 of 3 - 19+ 3-dose series) 1983 Cologuard 2009 Sigmoidoscopy 2009 Fecal Occult Blood Test 04/07/2014 04/07/2013 COVID-19 Vaccine ( - 2022- season) 2022 [...] filedocumented as of this encounter Care Teams Occupational Therapy Supervisor Relationship Specialty Start Date End Date Alan Oshea MD [address] [address] PCP - General Family Medicine 07/14/17 documented as of this encounter
--- OUTSIDE RECORDS SUMMARY | 2023-12-22 10:36 | External Medical Summary | Summary of Care ---
Author Name Unknown Organization [facility] Address [address] [place] [address] Phone [phone] Care Team Providers Care Cmm Inspector Name Role Phone Alan Oshea MD Primary Care Provider + Reason for Visit * Reason Comments Outpatient Testing Encounter Details Date Type Department Care Team (Late st Contact Info) Description 08/19/2023 7:30 AM EDT Laboratory Laboratory, [facility] [address] [place] [phone] [facility] [address] [place] [address] Urinary frequency Allergies Active Allergy Reactions Criticality Noted Date Comments Cephalosporins 04/27/2002 keflex, lips swelled Penicillins 10/30/2002 ? rash documented as of this encounter (statuses as of 08/19/2023) Medications Medication Sig Dispensed Refills Start Date [...] as of this encounter (statuses as of 08/19/2023) Active Problems Problem Noted Date Diagnosed Date [...] Donates blood regularly. . Declined shingrix. Colonoscopy-- [place] [address] 1cm tubular adenoma. [...] as of this encounter (statuses as of 08/19/2023) Resolved Problems Problem Noted Date Diagnosed Date Resolved Date Sprain of coccyx 12/01/2006 06/07/2012 Dyslipidemia, goal LDL below 160 10/11/2006 03/14/2009 Overview: Per Lipid Taxonomy. Obesity, BMI not known 10/11/200606/20 Overview: Per Obesity Taxonomy documented as of this encounter (statuses as of 08/19/2023) Immunizations Name Administration Dates Next Due COVID-19 [...] on file documented as of this encounter Plan of Treatment Upcoming Encounters Date Type Department Care Team (Late st Contact Info) Description 10/04/2023 10:00 AM EDT PulmDiagnostic Sleep Lab Leah Santos [address] [address] Tom, Sleep Med Home Study Leah [address] [address] 11/02/2023 11:20 AM EDT Office Visit Sleep Disorders Ctr Leah Santos [place] [address] [phone] Karina Galarza DO [address] [address] 01/07/2024 8:20 AM EDT Office Visit [facility] [address] [place] [address] Alan Oshea MD [address] [place] [address] 06/16/2024 8:20 AM EDT Office Visit [facility] [address] [place] [address] Alan Oshea MD [address] [facility] [place] [address] Pending Results Name Type Priority Associated Diagnoses Date /Time CULTURE, URINE, QUANTITATIVE Lab Routine Urinary frequency 08/19/2023 7:27 AM EDT Scheduled Procedures Name Priority Associated Diagnoses Date/Ti [...] shot) (Season Ended) 2023 GFR 05/14/2024 05/14/2023, 03/0 09/2022, 03/11/2022, [...] Not on filedocumented as of this encounter Procedures Procedure Name Priority Date/Time Associated Diagnosis Comments URINALYSIS, REFLEX TO MICROSCOPIC Routine 08/19/2023 7:27 AM EDT Urinary frequency documented in this encounter Results * URINALYSIS, REFLEX TO MICROSCOPIC (08/19/2023 7:27 AM EDT) Color, Urine Yellow Light Yellow, Yellow, Dark Yellow 08/19/2023 7:37 AM EDT LAB[facility] [place] 57-10 Clarity, Urine Clear Clear 08/19/2023 7:37 AM EDT [facility] [place] 57-10 Glucose, Urine Negative Negative mg/dL 08/19/2023 7:37 AM EDT [facility] [place] 57-10 Bilirubin, Urine Negative Negative 08/19/2023 7:37 AM EDT [facility] [place] 57-10 Ketone, Urine Negative Negative mg/dL 08/19/2023 7:37 AM EDT [facility] [place] 57-10 Specific [place], Urine 1.025 1.003 - 1.030 08/19/2023 7:37 AM EDT [facility] [place] 57-10 Blood, Urine Negative Negative 08/19/2023 7:37 AM EDT [facility] [place] 57-10 pH, Urine 5.5 5.0 - 7.5 Units 08/19/2023 7:37 AM EDT [facility] [place] 57-10 Protein, Urine Negative Negative mg/dL 08/19/2023 7:37 AM EDT [facility] [place] 57-10 Urobilinogen, Urine 0.2 0.2, 1.0 mg/dL 08/19/2023 7:37 AM EDT [facility] [place] 57-10 Nitrite, Urine Negative Negative 08/19/2023 7:37 AM EDT [facility] [place] 57[facility]10 Esterase, Urine Negative Negative 7:37 AM EDT [facility] [place] 57-10 Comment, Urine 08/19/2023 7:37 AM EDT [facility] [place] 57-10 Comment:Screen negative - Mi croscopic not performed. Urine Urine specimen obtained by clean catch procedure / Unknown Non-blood Collection / Unknown 08/19/2023 7:27 AM EDT 08/19/2023 7:27 AM EDT Alan Oshea MD LAB URINE ORDERA BLES [facility] [place] [facility] [address] [address] documented in this encounter Visit Diagnoses Diagnosis Urinary frequency documented in this encounter Care Teams Cmm Inspector Relationship Specialty Start Date End Date Alan Oshea MD [address] [address] PCP - General Family Medicine 07/14/17 documented as of this encounter
--- OUTSIDE RECORDS SUMMARY | 2023-12-22 10:36 | External Medical Summary | Summary of Care ---
Author Name Unknown Organization [facility] Address [address] [place] [address] Phone [phone] Care Team Providers Care Lace Roller Name Role Phone Alan Oshea MD Primary Care Provider + Reason for Visit * Reason Comments Review Sleep Study Encounter Details Date Type Department Care Team (Latest Contact Info) Description 05/24/2023 2:00 PM EST [facility] 132 [facility] [place] [address] Santos Sleep Med Home Study [facility] [address] [place] [address] KARO (obstructive sleep apnea)*; Nocturnal hypoxemia Allergies [...] Donates blood regularly. . Declined shingrix. Colonoscopy-- [place] 2014 multiple polyps Path 1cm tubular adenoma. [...] of this encounter Progress Notes * Karina Galarza, DO - 06/29/2023 4:11 PM EDT Images from the original note were not included. Study Date: 05/24/2023 Patient Name: Byron Meza Recording Device: Daisy Landin Sex: M : 1965 Acq ID: [id number] Age: 58 years Location: [facility] Times and Durations Lights off clock time: 9:16:16 PM Total Recording Time (TRT): 478.7 minutes Lights on clock time: 5:10:58 AM Time In Bed (TIB): 474.7 minutes Summary KERRIE 15.3 OAI 2.2 CHAN 0.0 Lowest Desat 77 KERRIE is the number of apneas and hypopneas per hour. OAI is the number of obstructive apneas per hour. CHAN is the number of central apneas per hour. Lowest Desat is the lowest blood oxygen level that lasted at least 2 seconds. RESPIRATORY EVENTS Index (#/hour) Total # of Events Mean duration (sec) Max duration (sec) # of Events by Position Supine Prone Left Right Up Central Apneas 0.0 0 0.0 0.0 0 0 0 0 0 Obstructive Apneas 2.2 17 12.3 14.5 16 0 1 0 0 Mixed Apneas 0.0 0 0.0 0.0 0 0 0 0 0 Hypopneas 13.1 (3%) 103 (3%) 17.6 61.5 79 0 16 8 0 9.3 (4%) 73 (4%) Apneas + Hypopneas 15.3 (3%) 120 (3%) 16.9 61.5 95 0 17 8 0 11.5 (4%) 90 (4%) Total 15.3 (3%) 120 (3%) 16.9 61.5 95 0 17 8 0 11.5 (4%) 90(4%) Time in Position 194.5 0.2 166.4 109.7 3.9 AHI in Position 29.3 0.0 6.1 4.4 0.0 Oximetry Summary Dur. (min) % TIB <90 % 70.3 14.8 <85 % 2.3 0.5 <80 % 0.3 0.1 <70 % 0.0 0.0 Total Dur (min) < 89 27.6 min Average (%) 91 Total # of Desats 206 Desat Index (#/hour) 26.3 Desat Max (%) 17 Desat Max dur (sec) 87.0 Lowest SpO2 % during sleep 77 Duration of Min SpO2 (sec) 7 Heart Rate Stats Mean HR during sleep 68.6 (BPM) Highest HR during recording 97 (BPM) Technical Considerations: Following the clinical guidelines for the use of unattended portable monitors in the diagnosis of obstructive sleep apnea in adult patients published by the Portable Monitoring Task Force of the [place] [employer] published in the Journal of Clinical Sleep Medicine in 2007, this study was recorded using a Type 3 device (Fivejack). Breathing effort, airflow, oxygen saturations, pulse, body position and patient events were monitored. Raw data was scored by a registered fibre technologist and reviewed by a sleep physician. The sleep stage and event scoring were based on the AASM Manual for the Scoring of Sleep and Associated Events, Version 2.5. Apneas are defined as a drop in the peak thermal sensor excursion by > 90% of baseline for at least 10 seconds. Hypopneas were scored using the 4% oxygen desaturation rule (4A-Medicare) and a decrease in the nasal pressure excursions by > 30% of baseline for at least 10 seconds. Respiratory Event Index (KERRIE) is a surrogate for Apnea Hypopnea Index (AHI). Please note that portable monitoring is inadequate to diagnose central sleep apnea because we are unable to differentiate physiologic post-arousal events from a pathological form of central apnea; this is because electroencephalogram is not used in this type of study. Impression: 1. The diagnosis of moderate obstructive sleep apnea is supported based on the limited data obtained in this HSAT which demonstrated an elevated Respiratory Event Index (KERRIE=15.3). 2. The minimum oxygen saturation was 77%. The oxygen saturation was less than 90% for more than 5 minutes which suggests hypoxemia. Recommendation: Consider treatment with CPAP with either an in-lab titration study or home auto- titrating positive airway pressure trial. Other treatment options include mandibular advancing device, weight loss, andsurgery. Avoid alcohol and sedatives. Avoid driving, operating heavy machinery or engaging in activities that may require full alertness if feeling sleepy, drowsy or otherwise impaired. Weight loss is recommended if sleep apnea occurs in the context of obesity. Electronically signed: Karina Galarza DO Sleep Medicine documented in this encounter Plan of Treatment Upcoming Encounters Date Type Department Care Team (Late st Contact Info) Description 07/06/2023 10:20 AM EDT Office Visit Sleep Disorders Ctr Leah Santos, [place] [address] [place] [phone] Karina Galarza DO [address] [address] 01/07/2024 8:20 AM EDT Office Visit Family Practice Ja[facility] Santos [place] [address] [place] [address] Alan Oshea MD [address] [place] [address] 06/16/2024 8:20 AM EDT Office Visit Family Practice [facility] [address] [place] [address] Alan Oshea MD [address] [place] [address] Scheduled Procedures Name Priority Associated Diagnoses Date/Ti [...] Hypoxemia documented in this encounter Care Teams Lace Roller Relationship Specialty Start Date End Date Alan Oshea MD [address] [address] PCP - General Family Medicine 07/14/17 documented as of this encounter
--- OUTSIDE RECORDS SUMMARY | 2023-12-22 10:36 | External Medical Summary | Summary of Care ---
Author Name Unknown Organization [facility] Address [address] [place] [address] Phone [phone] Care Team Providers Care Warm In Name Role Phone Alan Oshea MD Primary Care Provider + Reason for Visit * Reason Onset Date Comments Sleep Apnea Device 10/08/2023 Encounter Details Date Type Department Care Team (Late st Contact Info) Description 10/08/2023 Telephone Sleep Lab, [facility] [address] [place], [place] [id number] Karina Galarza, DO [address] [place] [address] Sleep Apnea Device Allergies Active Allergy Reactions Criticality Noted Date Comments Cephalosporins 04/27/2002 keflex, lips swelled Penicillins 10/30/2002 ? rash documented as of this encounter (statuses as of 10/08/2023) Medications Medication Sig Dispensed Refills Start Date [...] as of this encounter (statuses as of 10/08/2023) Active Problems Problem Noted Date Diagnosed Date [...] Donates blood regularly. . Declined shingrix. Colonoscopy-- [place] 2014 multiple polyps Path 1cm tubular adenoma. [...] as of this encounter (statuses as of 10/08/2023) Resolved Problems Problem Noted Date Diagnosed Date Resolved Date Sprain of coccyx 12/01/2006 06/07/2012 Dyslipidemia, goal LDL below 160 10/11/2006 03/14/2009 Overview: Per Lipid Taxonomy. Obesity, BMI not known 10/11/200606/20 Overview: Per Obesity Taxonomy documented as of this encounter (statuses as of 10/08/2023) Immunizations Name Administration Dates Next Due COVID-19 [...] Miscellaneous Notes * Telephone Encounter - Radha Gallagher RPSGT - 10/08/2023 12:58 AM EDT Mydeo study was successfully uploaded. Date of Service: 10/04/2023 documented in this encounter Plan of Treatment Upcoming Encounters Date Type Department Care Team (Late st Contact Info) Description 11/02/2023 11:20 AM EDT [facility] [address] [place] [phone] Karina Galarza, [address] [address] 01/07/2024 8:20 AM EDT Office Visit [facility] [address] [place] [address] Alan Oshea MD [address] [place] [address] 06/16/2024 8:20 AM EDT Office Visit [facility] [address] [place] [address] Alan Oshea MD [address] [place] [address] Scheduled Procedures Name Priority Associated Diagnoses Date/Ti [...] filedocumented as of this encounter Care Teams Warm In Relationship Specialty Start Date End Date Alan Oshea MD [address] [address] PCP - General Family Medicine 07/14/17 documented as of this encounter
--- OUTSIDE RECORDS SUMMARY | 2023-12-22 10:36 | External Medical Summary | Summary of Care ---
Author Name Unknown Organization [facility] Address [address] [place] [address] Phone [phone] Care Team Providers Care Software Project Engineer Name Role Phone Alan Oshea MD Primary Care Provider + Reason for Visit * Reason Comments Follow Up Review Sleep Study WatchPat Results Encounter Details Date Type Department Care Team (Late st Contact Info) Description 11/02/2023 11:00 AM EDT Office Visit [facility] [place] [address] [place] [phone] Karina Galarza DO [address] [facility] [place] [address] KARO (obstructive sleep apnea)* Allergies Active Allergy [...] Donates blood regularly. . Declined shingrix. Colonoscopy-- [place] 2014 multiple polyps Path 1cm tubular adenoma. [...] Sign Reading Time Taken Comments Blood Pressure 132/80 11/02/2023 10:57 AM EDT Pulse 78 11/02/2023 10:57 AM EDT Temperature 36.6 C (97.8 F) 11/02/2023 10:57 AM E DT Respiratory Rate 16 11/02/2023 10:57 AM EDT Oxygen Saturation 98% 11/02/2023 10:57 AM EDT Inhaled Oxygen Concentration - - Weight 101.2 kg (223 lb) 11/02/2023 10:57 AM EDT Height 175.3 cm (5' 9") 11/02/2023 10:57 AM EDT Body Mass Index 32.93 11/02/2023 10:57 AM EDT documented in this encounter Progress Notes * Karina Galarza, - 11/02/2023 11:09 AM EDT Sleep Medicine Follow-Up Clinic Note HISTORY: Mr. Byron Meza is a 58 year old male w/ a pmh of migraine and HTN who I sin clinic today for results of the recent sleep study. Mr. Meza believes he lost about 17 lbs but has regained some of that. He had tried eXciteOSA in the past without feeling improvement. WatchPAT 10/06/23: pAHI (3%) 21.9 pAHI (4%) 11.3 O2 Fausto 83% <89% O2 0.7 mins Home Sleep Apnea Test (HSAT) 05/24/23: KERRIE 15.3 O2 Fausto 77 % <89% O2 27.6 mins Wt 101.6 kg (224 lb) | BMI 33.08 Home Sleep Apnea Test (HSAT) 10/15/22: W/ inconsistent eXcite KARO use KERRIE 19.8 O2 Fausto 82 % <89% O2 23.7 mins Dx Polysomnogram 07/27/20: BMI 33.67 AHI 12.4 (CMS/medicare criteria used) Min O2 76 % <89% O2 28 min(s) PLMI 16.3 Travel Screening Question 11/02/2023 10:54 AM EDT - Filed by Patient Do you have any of the following new or worsening symptoms? None of these Have you recently been in contact with someone who was sick? No / Unsure Past Medical History: Diagnosis Date Abdominal pain [...] performed by Adrián Aguilar MD at [facility] COLONOSCOPY, DIAGNOSTIC (RECTUM) 06/26/2022 diverticulosis/recall 3 years/COLONOSCOPY FLEXIBLE PROXIMAL DIAGNOSTIC performed by Adrián Aguilar MD at [facility] COLONOSCPOY E/ ENDOSCOPIC US 12/09/2014 benign gastric polyp, 4hyperplastic and 1 tubuloadenmoa IR BIOPSY 09/10/2021 OTHER Right 04/07/2022 right knee medial meniscectomy Dr Estrada. REMOVAL OF APPENDIX REMOVE CATARACT, INSERT LENS PROSTH 07/06 & 08/05 -[facility] REMOVE GALLBLADDER 1994 SINUS SURGERY PROCEDURE NEC Bilateral 2002 Dr Johnson b/l sinus surgery [facility] Current Outpatient Medications Medication Sig Dispense Refill Lisinopril-hydroCHLOROthiazide 10-12.5 MG Oral Tablet Take 1 Tablet by mouth in the morning and 1 Tablet before bedtime. 180 Tablet 2 Sildenafil Citrate 100 MG Oral Tablet (Viagra) 1/2 or 1 pill 1-4 hours before intercourse, no more than 1 dose in 24 hours. 30 Tablet 5 No current facility-administered medications for this visit. Review of patient's allergies indicates: Allergen Reactions Cephalosporins keflex, lips swelled Penicillins ? rash PHYSICAL EXAM: BP 132/80 | Pulse 78 | Temp 36.6 C (97.8 F) (Tympanic) | Resp 16 | Ht 1.753 m (5' 9") | Wt 101.2 kg (223 lb) | SpO2 98% | BMI 32.93 kg/m | BSA 2.22 m Constitutional: Alert, oriented in no acute distress Skin: no markings on face Chest: Normal respiratory effort at rest Neuro: Normal speech and comprehension Psych: Appropriate mood and affect ASSESSMENT/PLAN: Moderate Obstructive Sleep Apnea We went over the diagnosis of obstructive sleep apnea with the patient, as well as the possible treatment options. Patient opted to try AutoPAP The patient should continue a weight reduction program. Even a mild to moderate weight loss [...] otherwise impaired. Follow-up with Sleep Medicine in 31-90d of starting PAP. Karina Galarza, DO I spent a total of 30-39 minutes (exact time 30 mins) on the date of service in preparation, delivery, and documentation of the care provided to Byron Meza excluding any time spent in the performance of separately billed services. documented in this encounter Nursing Notes * Cher Perkins LPN - 11/02/2023 10:59 AM EDT Chief Complaint Patient presents with Follow Up Review Sleep Study WatchPat Results documented in this encounter Plan of Treatment Upcoming Encounters Date Type Department Care Team (Late st Contact Info) Description 01/07/2024 8:20 AM EDT Office Visit [facility] [address] [place] [id number] Alan Oshea MD [address] [place] [id number] 06/06/2024 10:00 AM EDT Office Visit [facility] Disorders [facility]tr [facility] [address] [place] [phone] Karina Galarza DO [address] [place] [address] 06/16/2024 8:20 AM EDT Office Visit [facility] [address] [place] [id number] Alan Oshea MD [address] [place] [address] Scheduled Procedures Name Priority Associated Diagnoses Date/Ti [...] (pediatric) documented in this encounter Care Teams Software Project Engineer Relationship Specialty Start Date End Date Alan Oshea MD [address] [place] [id number] PCP - General Family Medicine 07/14/17 documented as of this encounter
--- NOTE | 2023-12-22 10:44 | Hospitalist Progress Note ---
Date of Service December 22, 2023 Assessment & Plan (1) SBO (small bowel obstruction): (2) Abdominal pain: Plan: 58-year-old male with PMH of hypertension, dyslipidemia, KARO and other medical problems listed below who was sent in from clinic due to abnormal CT abdomen pelvis findings showing SBO. He is being managed for the following: Small bowel obstruction Patient presented with diffuse abdominal TTP and bloating for 2 days, reported last bowel movement Wednesday morning prior to arrival. Outpatient CT abdomen pelvis reviewed, admitting KUB x-ray with small bowel obstruction. Currently abdominal pain improving, moved gas last evening, has not moved bowel. Reports feeling better. Denies nausea or vomiting. Continue with pain management, IV fluids, n.p.o., Pantoprazole IV. Encourage ambulation. General Surgery on board, recommends conservative management. (3) Hypertension: Plan: Optimize pain. Hold lisinopril-hctz while NPO. Added PRN hydralazine (4) Dyslipidemia: Plan: Resume statin as diet is advanced DVT Ppx: SCDs Code status: FULL PCP: [facility] Admission and Anticipated Discharge Date Admission Date: December 21, 2023 Subjective Patient was seen and examined at bedside. Patient was lying in bed, on room air, NAD, resting comfortably. Patient reports his last bowel movement was Wednesday morning, yesterday evening he had some gas. Reports improvement in his belly pain. Denies nausea or vomiting. Denies febrile episodes or cough or chills or sore throat. Physical Exam Physical Exam: GENERAL: Alert and oriented x3. NAD, on RA. HEENT: No pallor, no icterus. Pupils equal, round and reactive to light. Oral mucosa moist. NECK: No JVD, no neck masses. HEART: S1 and S2 heard. Regular rate and rhythm. No murmur, no gallop. RESPIRATORY SYSTEM: Normal AP diameter. No accessory muscle use. No wheezing, no crackles. ABDOMEN: Soft, bowel sounds present, Diffusely TTP - improved per pt, no distention. CENTRAL NERVOUS SYSTEM: No facial droop. Speech is clear. Obeys simple commands. Moves extremities. EXTREMITIES: No edema, no erythema seen. Results & Data Results & Data Vital Signs (Past 12 Hours) Vital Signs Pulse Pulse Resp BP BP Pulse Ox O2 Del Method 12/22/23 08:43 75 18 142/81 H 94 Room Air 12/22/23 05:17 66 14 124/90 95 Room Air 12/22/23 02:01 64 12 122/66 95 Room Air 12/22/23 02:00 64 12 122/66 95 Room Air 12/22/23 00:00 119/80 12/21/23 23:51 69 14 95 12/21/23 23:18 73 12/21/23 23:09 72 16 96 (2) Abdominal pain Abdominal location: generalized Qualified Code(s): R10.84 - Generalized abdominal pain
[2023-12-22] MEDS: KETOROLAC 30 MG/ML VIAL IV PRN (12:51)
[2023-12-22] MEDS: PANTOprazole 40 MG in SYRINGE 0 ML IV SCH (13:02)
[2023-12-23 06:31] LABS: Hematocrit (blood only) 35.5 % (42.0-52.0); Hemoglobin 12.1 g/dl (14.0-18.0); Mean Corpuscular Hemoglobin 28.5 pg (25.0-34.0); Mean Corpuscular Hgb Conc 34.1 g/dL (32.0-36.0); Mean Corpuscular Volume 83.5 fL (80.0-100.0); Mean Platelet Volume 10.8 fL (9.4-12.4); Platelet Count 161 K/uL (130-400); RDW Coefficient of Variation 13.2 % (11.5-14.5); RDW Standard Deviation 39.9 fL (36.4-46.3); Red Blood Count 4.25 M/uL (4.70-6.10); White Blood Count 6.31 K/ul (4.8-10.8)
[2023-12-23 06:39] LABS: BUN Creatinine Ratio 29.9 (10-20); Calcium 8.2 mg/dl (8.6-10.3); Creatinine Clr Calc Pharmacy 106.9 ml/min; Est GFR (African American) 109.5 ml/min; Est GFR (Non-African American) 94.5 ml/min; Magnesium 1.8 mg/dl (1.7-2.4); Potassium 3.3 mmol/L (3.5-5.1)
--- NOTE | 2023-12-23 09:05 | Surgery Progress Note ---
Date of Service December 23, 2023 Assessment & Plan (1) SBO (small bowel obstruction): Plan: resolving SBO begin diet advance diet as the patient tolerates ambulate Admission and Anticipated Discharge Date Admission Date: December 21, 2023 Subjective passing BMs feels better no N/V Review of Systems Constitutional: no fever and no chills Respiratory: no cough and no dyspnea Cardiovascular: no chest pain Gastrointestinal: + bloating (improved); no abdominal pain , no nausea and no vomiting Genitourinary: no dysuria Neurologic: no localized weakness and no generalized weakness Psychiatric: no behavioral changes Physical Exam Constitutional: WD/WN, vitals as above Respiratory: normal respiratory effort, lungs clear to auscultation Cardiovascular: RRR, no murmur, no edema Gastrointestinal (Abdomen): Inspection/Auscultation: abdomen normal to inspection and normal bowel sounds; abdomen not distended Percussion/Palpation: abdomen soft; abdomen nontender, no guarding and abdomen not rigid Musculoskeletal: Head/Neck/Chest: normocephalic and head atraumatic Skin: no rashes, warm and dry Results & Data Vital Signs (Past 12 Hours) Vital Signs Temp Pulse Resp BP BP Pulse Ox O2 Del Method 12/23/23 07:10 36.6 C 67 16 151/78 H 95 Room Air 12/22/23 21:40 36.7 C 80 16 154/81 H 96 Room Air
[2023-12-23] MEDS: POTASSIUM CHLORIDE / WTR 10 MEQ/100 ML PLCT IV SCH (11:28)
--- NOTE | 2023-12-23 12:27 | Hospitalist Progress Note ---
Date of Service December 23, 2023 Assessment & Plan (1) SBO (small bowel obstruction): (2) Abdominal pain: Plan: 58-year-old male with PMH of hypertension, dyslipidemia, KARO and other medical problems listed below who was sent in from clinic due to abnormal CT abdomen pelvis findings showing SBO. He is being managed for the following: Small bowel obstruction Patient presented with diffuse abdominal TTP and bloating for 2 days, reported last bowel movement Wednesday morning prior to arrival. Outpatient CT abdomen pelvis reviewed, admitting KUB x-ray with small bowel obstruction. Currently abdominal pain improving, has 1 watery bm last evening, not moving gas. Denies nausea or vomiting. Continue with pain management, IV fluids, n.p.o., Pantoprazole IV. Encouraged ambulation. General Surgery on board, recommends conservative management. Diet resumed. ADAT. DC IVF if tolerating diet. (3) Hypertension: Plan: Optimize pain. Hold lisinopril-hctz while NPO. Added PRN hydralazine (4) Dyslipidemia: Plan: Resume statin as diet is advanced DVT Ppx: SCDs Code status: FULL PCP: [facility] Admission and Anticipated Discharge Date Admission Date: December 21, 2023 Subjective Patient was seen and examined at bedside. Patient was lying in bed, on room air, NAD, resting comfortably. Patient moved watery bowel movement with few flakes yesterday, still with abdominal pain though reports improving, has not been moving gas. Denies nausea or vomiting. Denies febrile episodes or cough or chills or sore throat. Physical Exam Physical Exam: GENERAL: Alert and oriented x3. NAD, on RA. HEENT: No pallor, no icterus. Pupils equal, round and reactive to light. Oral mucosa moist. NECK: No JVD, no neck masses. HEART: S1 and S2 heard. Regular rate and rhythm. No murmur, no gallop. RESPIRATORY SYSTEM: Normal AP diameter. No accessory muscle use. No wheezing, no crackles. ABDOMEN: Soft, bowel sounds present, Diffusely TTP - improving per pt, no distention. CENTRAL NERVOUS SYSTEM: No facial droop. Speech is clear. Obeys simple commands. Moves extremities. EXTREMITIES: No edema, no erythema seen. Results & Data Results & Data Vital Signs (Past 12 Hours) Vital Signs Temp Pulse Resp BP Pulse Ox O2 Del Method 12/23/23 07:10 36.6 C 67 16 151/78 H 95 Room Air (2) Abdominal pain Abdominal location: generalized Qualified Code(s): R10.84 - Generalized abdom inal pain
[2023-12-24 06:27] LABS: Hematocrit (blood only) 33.3 % (42.0-52.0); Hemoglobin 11.5 g/dl (14.0-18.0); Mean Corpuscular Hemoglobin 28.5 pg (25.0-34.0); Mean Corpuscular Hgb Conc 34.5 g/dL (32.0-36.0); Mean Corpuscular Volume 82.6 fL (80.0-100.0); Mean Platelet Volume 10.8 fL (9.4-12.4); Platelet Count 162 K/uL (130-400); RDW Coefficient of Variation 13.4 % (11.5-14.5); RDW Standard Deviation 40.6 fL (36.4-46.3); Red Blood Count 4.03 M/uL (4.70-6.10); White Blood Count 5.95 K/ul (4.8-10.8)
[2023-12-24 06:50] LABS: BUN Creatinine Ratio 17.3 (10-20); Calcium 8.2 mg/dl (8.6-10.3); Creatinine Clr Calc Pharmacy 114.9 ml/min; Est GFR (African American) 112.7 ml/min; Est GFR (Non-African American) 97.3 ml/min; Magnesium 1.8 mg/dl (1.7-2.4); Phosphorus 2.2 mg/dl (2.5-4.9); Potassium 3.4 mmol/L (3.5-5.1)
[2023-12-24] MEDS: POTASSIUM CHLORIDE CRTAB 20 MEQ TABCR PO STA (08:46)
[2023-12-24] MEDS: POTASSIUM CHLORIDE / WTR 10 MEQ/100 ML PLCT IV SCH (08:47)
[2023-12-24] MEDS: POT PHOSPHATE MONOBASIC W/ SOD TAB PO SCH (09:02)
--- NOTE | 2023-12-24 12:04 | Surgery Progress Note ---
Date of Service December 24, 2023 Assessment & Plan (1) SBO (small bowel obstruction): Plan: resolving SBO slowly continue to ambulate full liquids continue medical management Admission and Anticipated Discharge Date Admission Date: December 21, 2023 Subjective feeling better today than last night having some RLQ abdominal pain no n,v tolerating clear liquids, hungry and wants more to eat but not passing any gas. Had liquid bowel movement yesterday morning Physical Exam Constitutional: WD/WN, vitals as above cooperative and comfortable; no acute distress and not ill appearing Gastrointestinal (Abdomen): Inspection/Auscultation: + abdomen distended (milld), normal bowel sounds and + abdominal surgical scar Percussion/Palpation: + abdomen tender (RLQ) and abdomen soft; no guarding, abdomen not rigid and abdomen not firm Skin: no rashes, warm and dry Psychiatric: A+Ox3, euthymic affect Results & Data Vital Signs (Past 12 Hours) Vital Signs Temp Pulse Resp BP Pulse Ox O2 Del Method 12/24/23 07:15 36.7 C 73 16 155/85 H 97 Room Air Laboratory Results 12/24/23 Range/Units 05:51 WBC 5.95 (4.8-10.8) K/ul RBC 4.03 L (4.70-6.10) M/uL Hgb 11.5 L (14.0-18.0) g/dl Hct 33.3 L (42.0-52.0) % MCV 82.6 (80.0-100.0) fL MCH 28.5 (25.0-34.0) pg MCHC 34.5 (32.0-36.0) g/dL RDW Std Deviation 40.6 (36.4-46.3) fL RDW Coeff of Re 13.4 (11.5-14.5) % Plt Count 162 (130-400) K/uL MPV 10.8 (9.4-12.4) fL Sodium 141 (136-145) mmol/L Potassium 3.4 L (3.5-5.1) mmol/L Chloride 112 H (98-107) mmol/L Carbon Dioxide 23 (21-32) mmol/L Anion Gap 6 (3-11) BUN 14 (6-23) mg/dl Creatinine 0.81 (0.6-1.4) mg/dl Est Cr Clr Drug Dosing 114.9 ml/min Est GFR ( Amer) 112.7 ml/min Est GFR (Non-Af Amer) 97.3 ml/min BUN/Creatinine Ratio 17.3 (10-20) Glucose 97 (70-99(Fasting)) mg/dl Calcium 8.2 L (8.6-10.3) mg/dl Phosphorus 2.2 L (2.5-4.9) mg/dl Magnesium 1.8 (1.7-2.4) mg/dl
--- NOTE | 2023-12-24 15:03 | Hospitalist Progress Note ---
Date of Service December 24, 2023 Assessment & Plan (1) SBO (small bowel obstruction): (2) Abdominal pain: Plan: 58-year-old male with PMH of hypertension, dyslipidemia, KARO and other medical problems listed below who was sent in from clinic due to abnormal CT abdomen pelvis findings showing SBO. He is being managed for the following: Small bowel obstruction Patient presented with diffuse abdominal TTP and bloating for 2 days, reported last bowel movement Wednesday morning prior to arrival. Outpatient CT abdomen pelvis reviewed, admitting KUB x-ray with small bowel obstruction. Currently abdominal pain improving, has 1 watery bm 12/22 evening and 1 watery BM 12/23 am, not moving gas. Denies nausea or vomiting. Continue with pain management, IV fluids, n.p.o., Pantoprazole IV. Encouraged ambulation. General Surgery on board, recommends conservative management. Diet resumed, full liq today. ADAT. DC IVF. if not tolerating PO intake, resume ivf. (3) Hypertension: Plan: Optimize pain. Hold lisinopril-hctz while NPO. Added PRN hydralazine (4) Dyslipidemia: Plan: Resume statin as diet is advanced DVT Ppx: SCDs Code status: FULL PCP: [facility] Admission and Anticipated Discharge Date Admission Date: December 21, 2023 Subjective Patient was seen and examined at bedside. Patient was sitting up in chair, on room air, NAD, resting comfortably. Patient moved watery bowel movement today am, not moving gas, generalized abd pain improving, now mostly RLQ abd pain. Denies nausea or vomiting. Denies febrile episodes or cough or chills or sore throat. Physical Exam Physical Exam: GENERAL: Alert and oriented x3. NAD, on RA. HEENT: No pallor, no icterus. Pupils equal, round and reactive to light. Oral mucosa moist. NECK: No JVD, no neck masses. HEART: S1 and S2 heard. Regular rate and rhythm. No murmur, no gallop. RESPIRATORY SYSTEM: Normal AP diameter. No accessory muscle use. No wheezing, no crackles. ABDOMEN: Soft, bowel sounds present, Diffusely TTP - improving per pt, no RLQ tender, no distention. CENTRAL NERVOUS SYSTEM: No facial droop. Speech is clear. Obeys simple commands. Moves extremities. EXTREMITIES: No edema, no erythema seen. Results & Data Results & Data Vital Signs (Past 12 Hours) Vital Signs Temp Pulse Resp BP Pulse Ox O2 Del Method 12/24/23 07:15 36.7 C 73 16 155/85 H 97 Room Air (2) Abdominal pain Abdominal location: generalized Qualified Code(s): R10.84 - Generalized abdominal pain
--- NOTE | 2023-12-25 05:03 | Surgery Progress Note ---
Date of Service December 25, 2023 Assessment & Plan (1) SBO (small bowel obstruction): Plan: Patient has been admitted on the hospitalist service. From surgery perspective we recommend the following: Continue full liquids until patient has continued improvement of bowel function Encourage ambulation Check a.m. labs when available Admission and Anticipated Discharge Date Admission Date: December 21, 2023 Supervising Physician Co-Signing Physician Notes I have seen and examined this patient. I agree with surgical assessment by the surgical PA. DAVID this a.m. does appear reassuring, patient admits to only a small amount of flatus. Would go slowly and continue with full liquids for today. I have spoken to the patient about this and he agrees with this plan. I will see him in the a.m. Subjective Patient is resting comfortably in bed. He notes that he is not passing flatus but has had a liquid bowel movement. He denies any nausea or vomiting. He denies any abdominal pain at this time. Physical Exam Gastrointestinal (Abdomen): Abdomen noted to have mild distention. There is no rebound tenderness or guarding and minimal pain with palpation. Results & Data Vital Signs (Past 12 Hours) Vital Signs Temp Pulse Resp BP Pulse Ox O2 Del Method 12/24/23 20:29 156/93 H 12/24/23 20:05 37.1 C 63 16 100 Room Air PG Care Time/CCT Total # of Minutes Spent Total Time Spent with Patient: Total time spent is greater than 50% in coordination of care (as documented) at patient's floor/unit and/or counseling patient: Coding Level of Care Code 78440 SUB INP/OBS CARE 04/22MIN Diagnoses SBO (small bowel obstruction) K56.609
[2023-12-25 05:51] LABS: Hematocrit (blood only) 32.3 % (42.0-52.0); Hemoglobin 11.3 g/dl (14.0-18.0); Mean Corpuscular Hemoglobin 28.4 pg (25.0-34.0); Mean Corpuscular Volume 81.2 fL (80.0-100.0); Mean Platelet Volume 10.9 fL (9.4-12.4); Platelet Count 166 K/uL (130-400); RDW Coefficient of Variation 13.2 % (11.5-14.5); RDW Standard Deviation 39.3 fL (36.4-46.3); Red Blood Count 3.98 M/uL (4.70-6.10); White Blood Count 5.63 K/ul (4.8-10.8)
[2023-12-25 06:11] LABS: BUN Creatinine Ratio 11.3 (10-20); Calcium 8.1 mg/dl (8.6-10.3); Creatinine Clr Calc Pharmacy 116.3 ml/min; Est GFR (African American) 113.3 ml/min; Est GFR (Non-African American) 97.8 ml/min; Magnesium 1.8 mg/dl (1.7-2.4); Phosphorus 3.6 mg/dl (2.5-4.9); Potassium 3.3 mmol/L (3.5-5.1)
[2023-12-25] MEDS: LISINOPRIL/HCTZ 10/12.5MG TAB PO SCH (08:23)
[2023-12-25] MEDS: ATORVASTATIN 10 MG TAB PO SCH (08:23)
--- NOTE | 2023-12-25 09:21 | Hospitalist Progress Note ---
Date of Service December 25, 2023 Assessment & Plan (1) SBO (small bowel obstruction): (2) Abdominal pain: Plan: 58-year-old male with PMH of hypertension, dyslipidemia, KARO and other medical problems listed below who was sent in from clinic due to abnormal CT abdomen pelvis findings showing SBO. He is being managed for the following: Small bowel obstruction Patient presented with diffuse abdominal TTP and bloating for 2 days, reported last bowel movement Wednesday morning prior to arrival. Outpatient CT abdomen pelvis reviewed, admitting KUB x-ray with small bowel obstruction. Repeat KUB showed improvement in the small bowel obstruction Per surgery; recommend to continue full liquid diet until patient has continued improvement of bowel function Continue with pain management, IV fluids, n.p.o., Pantoprazole IV. Encouraged ambulation. (3) Hypertension: Plan: On lisinopril/hydrochlorothiazide, continue (4) Dyslipidemia: Plan: Resume statin as diet is advanced DVT Ppx: SCDs Code status: FULL PCP: [facility] Please note the above document was generated using voice recognition software. It may contain grammatical, syntax or spelling errors. Any formal questions or concerns about the content, text or information contained within the body of this dictation should be directly addressed to the provider for clarification Admission and Anticipated Discharge Date Admission Date: December 21, 2023 Subjective Patient seen and examined at bedside. He reported passing of liquid stool overnight Denies any pain or discomfort. Tolerating full liquid diet Review of Systems Review of Systems: All systems reviewed & are unremarkable except as noted in Subjective Physical Exam Physical Exam: GENERAL: Alert and oriented x3. NAD, on RA. HEENT: No pallor, no icterus. Pupils equal, round and reactive to light. Oral mucosa moist. NECK: No JVD, no neck masses. HEART: S1 and S2 heard. Regular rate and rhythm. No murmur, no gallop. RESPIRATORY SYSTEM: Normal AP diameter. No accessory muscle use. No wheezing, no crackles. ABDOMEN: Soft, bowel sounds present,Nontender. CENTRAL NERVOUS SYSTEM: No facial droop. Speech is clear. Obeys simple commands. Moves extremities. EXTREMITIES: No edema, no erythema seen. Results & Data Results & Data Vital Signs (Past 12 Hours) Vital Signs Temp Pulse Resp BP Pulse Ox O2 Del Method 12/25/23 08:07 36.6 C 62 16 145/79 H 95 Room Air 12/25/23 05:49 161/88 H (2) Abdominal pain Abdominal location: generalized Qualified Code(s): R10.84 - Generalized abdominal pain
[2023-12-25] MEDS ORDERED: KETOROLAC TROMETHAMINE 15 MG/ML VIAL IV PRN (09:24)
[2023-12-25] MEDS ORDERED: LISINOPRIL/HCTZ 10/12.5MG TAB PO SCH (09:30)
[2023-12-25] MEDS: lisinopril 10 MG TAB PO STA (20:34)
--- NOTE | 2023-12-26 05:03 | Surgery Progress Note ---
Date of Service December 26, 2023 Assessment & Plan (1) SBO (small bowel obstruction): Plan: Patient has been admitted on the hospitalist service. From surgery perspective we recommend the following: Continue full liquids for the present time; consideration may be given to advancing diet further as he continues to have symptomatic improvement Encourage ambulation Check a.m. labs when available Admission and Anticipated Discharge Date Admission Date: December 21, 2023 Supervising Physician Co-Signing Physician Notes I have seen and examined this patient this am, I agree with the above assessment. He continues to improve and admits to passing more flatus this am. He has been advanced to low fiber diet this am. Will be monitored on this diet today. His primary surgical team ([facility]) will follow up in the am if patient is still here. Subjective Patient is currently resting comfortably in bed. He denies any nausea or vomiting. He notes minimal abdominal pain. He is passing flatus. He notes that he feels hungry and has thus far tolerated full liquids. Physical Exam Gastrointestinal (Abdomen): Abdomen is soft with minimal distention. There is no pain with palpation. Results & Data Vital Signs (Past 12 Hours) Vital Signs Temp Pulse Pulse Resp BP BP Pulse Ox 12/25/23 23:43 53 L 164/95 H 12/25/23 19:51 36.4 C L 55 L 16 173/105 H 163/102 H 98 O2 Del Method 12/25/23 23:43 12/25/23 19:51 Room Air PG Care Time/CCT Total # of Minutes Spent Total Time Spent with Patient: Total time spent is greater than 50% in coordination of care (as documented) at patient's floor/unit and/or counseling patient: Coding Level of Care Code 87164 SUB INP/OBS CARE 04/22MIN Diagnoses SBO (small bowel obstruction) K56.609
[2023-12-26 06:12] LABS: BUN Creatinine Ratio 8.8 (10-20); Calcium 8.4 mg/dl (8.6-10.3); Creatinine Clr Calc Pharmacy 102.2 ml/min; Est GFR (African American) 106.5 ml/min; Est GFR (Non-African American) 91.9 ml/min; Potassium 3.3 mmol/L (3.5-5.1)
[2023-12-26] MEDS: lisinopril 20 MG TAB PO SCH (08:59)
[2023-12-26] MEDS: POTASSIUM CHLORIDE PWD 20 MEQ PACK PO SCH (09:09)
--- NOTE | 2023-12-26 11:05 | Hospitalist Progress Note ---
Date of Service December 26, 2023 Assessment & Plan (1) SBO (small bowel obstruction): (2) Abdominal pain: Plan: 58-year-old male with PMH of hypertension, dyslipidemia, KARO and other medical problems listed below who was sent in from clinic due to abnormal CT abdomen pelvis findings showing SBO. He is being managed for the following: Small bowel obstruction Patient presented with diffuse abdominal TTP and bloating for 2 days, reported last bowel movement Wednesday morning prior to arrival. Outpatient CT abdomen pelvis reviewed, admitting KUB x-ray with small bowel obstruction. Repeat KUB showed improvement in the small bowel obstruction Diet advanced to low fiber diet. Monitor for recurrence of abdominal pain Continue pain management Encouraged ambulation. (3) Hypertension: Plan: On lisinopril/hydrochlorothiazide, continue (4) Dyslipidemia: Plan: on lipitor, continue DVT Ppx: SCDs Code status: FULL PCP: Geovanni Please note the above document was generated using voice recognition software. It may contain grammatical, syntax or spelling errors. Any formal questions or concerns about the content, text or information contained within the body of this dictation should be directly addressed to the provider for clarification Admission and Anticipated Discharge Date Admission Date: December 21, 2023 Subjective Patient seen and examined at bedside He is tolerating full liquid diet without any issues No significant events overnight Review of Systems Review of Systems: All systems reviewed & are unremarkable except as noted in Subjective Physical Exam Physical Exam: GENERAL: Alert and oriented x3. NAD, on RA. HEENT: No pallor, no icterus. Pupils equal, round and reactive to light. Oral mucosa moist. NECK: No JVD, no neck masses. HEART: S1 and S2 heard. Regular rate and rhythm. No murmur, no gallop. RESPIRATORY SYSTEM: Normal AP diameter. No accessory muscle use. No wheezing, no crackles. ABDOMEN: Soft, bowel sounds present,Nontender. CENTRAL NERVOUS SYSTEM: No facial droop. Speech is clear. Obeys simple commands. Moves extremities. EXTREMITIES: No edema, no erythema seen. Results & Data Results & Data Vital Signs (Past 12 Hours) Vital Signs Temp Pulse Pulse Resp BP Pulse Ox O2 Del Method 12/26/23 08:06 36.8 C 75 14 144/79 H 95 Room Air 12/25/23 23:43 53 L 164/95 H (2) Abdominal pain Abdominal location: generalized Qualified Code(s): R10.84 - Generalized abdominal pain
--- NOTE | 2023-12-26 21:50 | XRay Report ---
KUB CLINICAL HISTORY: Follow-up small bowel obstruction. FINDINGS: 3 AP, portable, supine abdominal radiographs are compared to study dated 12/22/2023. Cholecy stectomy clips are seen in the right upper quadrant. There is only minimal persistent gaseous distent ion of the small bowel loops. This has significantly improved from previous and there is gas seen thr oughout the colon. This likely represents a resolving small bowel obstruction. No evidence of intrape ritoneal free air is seen on these supine images. There are no abnormal abdominal calcifications. The bony structures appear intact. Mild lumbosacral spondylosis is observed. IMPRESSION: Gaseous distention of the small bowel loops has significantly improved as compared to 11/28 with gas now seen throughout the colon. This likely represents a resolving small bowel obstruc tion. Electronically signed by: Grady Lopez M.D. 12/25/2023 9:44 AM
[2023-12-27 07:19] VITALS: BP 161/91; RESP 16; TEMP 98.1; O2SAT 95
[2023-12-27] MEDS: PANTOprazole 40 MG TAB PO SCH (09:17)
[2023-12-27] MEDS ORDERED: POLYETHYLENE (MIRALAX) 17 GM PACK PO PRN (12:23)
--- NOTE | 2023-12-27 12:25 | Surgery Progress Note ---
Date of Service December 27, 2023 Assessment & Plan (1) SBO (small bowel obstruction): Plan: resolving miralax discharge if medical ready per medical team Admission and Anticipated Discharge Date Admission Date: December 21, 2023 Subjective taking po no N/V some flatus Review of Systems Constitutional: no fever and no chills Respiratory: no cough and no dyspnea Cardiovascular: no chest pain Gastrointestinal: + change in bowel habits; no abdominal p ain, no nausea and no vomiting Genitourinary: no dysuria Neurologic: no localized weakness and no generalized weakness Psychiatric: no behavioral changes Physical Exam Constitutional: WD/WN, vitals as above Gastrointestinal (Abdomen): Inspection/Auscultation: abdomen normal to inspection and normal bowel sounds; abdomen not distended Percussion/Palpation: abdomen soft; abdomen nontender, no guarding and abdomen not rigid Musculoskeletal: Head/Neck/Chest: normocephalic and head atraumatic Skin: no rashes, warm and dry Results & Data Vital Signs (Past 12 Hours) Vital Signs Temp Pulse Resp BP Pulse Ox O2 Del Method 12/27/23 07:18 36.7 C 67 16 161/91 H 95 Room Air
--- NOTE | 2023-12-27 13:09 | Discharge Summary ---
Date of Service December 27, 2023 Admission HPI Per Admitting Provider This is a 58-year-old male with PMH of hypertension, dyslipidemia, KARO and other medical problems listed below who was sent in from clinic due to abnormal CT abdomen pelvis findings. Over the past few days, has noted abdominal pain described as cramping, aching and bloating. Poor PO intake with last big meal from [place] on Wednesday. No nausea and vomiting but continued to have abdominal pain and bloating so went to PCP today. There was initial concern for diverticulitis and CT abd/pelvis was obtained, which revealed small bowel obstruction with transition point in the right lower quadrant and small volume free fluid. History of appendectomy and lap jaclyn. Was sent to ED for further evaluation. No F/C, lightheadedness, CP, SOB, N/V, dysuria, diarrhea or constipation. Still with bloating and TTP, more in epigastrium and upper abdomen. Last bowel movement was Wednesday. Principal Diagnosis Small bowel obstruction Discharge Exam GENERAL: Alert and oriented x3. NAD, on RA. HEENT: No pallor, no icterus. Pupils equal, round and reactive to light. Oral mucosa moist. NECK: No JVD, no neck masses. HEART: S1 and S2 heard. Regular rate and rhythm. No murmur, no gallop. RESPIRATORY SYSTEM: Normal AP diameter. No accessory muscle use. No wheezing, no crackles. ABDOMEN: Soft, bowel sounds present,Nontender. CENTRAL NERVOUS SYSTEM: No facial droop. Speech is clear. Obeys simple commands. Moves extremities. EXTREMITIES: No edema, no erythema seen. Discharge Data Allergies Allergy/AdvReac Type Severity Reaction Status Date / Time cephalexin Allergy Severe swelling Verified 12/21/23 23:29 of face and lips Penicillins Allergy Unknown unknown-from Verified 12/21/23 23:29 childhood Consultations 12/21/23 18:16 ED Decision to Admit Stat 12/21/23 18:47 Consult General Surgery Routine Hospital Course (1) SBO (small bowel obstruction): (2) Abdominal pain: (3) Hypertension: (4) Dyslipidemia: 58-year-old male with PMH of hypertension, dyslipidemia, KARO and other medical problems listed below who was sent in from clinic due to abnormal CT abdomen pelvis findings showing SBO. Small bowel obstruction Patient presented with diffuse abdominal TTP and bloating for 2 days, reported last bowel movement Wednesday morning prior to arrival. Outpatient CT abdomen pelvis reviewed, admitting KUB x-ray with small bowel obstruction. Patient was admitted to medical floor; started on conservative care with n.p.o. status, IV fluids and pain management. Patient reported improvement in his small bowel obstruction with decreasing abdominal pain and bowel movement. Repeat KUB showed improvement in the small bowel obstruction Patient was tolerating low fiber diet at the time of the discharge without any issues. Patient was cleared for discharge by surgical team. Please note the above document was generated using voice recognition software. It may contain grammatical, syntax or spelling errors. Any formal questions or concerns about the content, text or information contained within the body of this dictation should be directly addressed to the provider for clarification Total Time Total Time Spent Total Time Spent (In Minutes): 35 Total Time Includes: Examination of the Patient, Discharge Planning, Medication Reconciliation, Communication With Other Providers and Other Discharge Plan Discharge Items Patient Disposition: Home - Self-Care Reason For Visit: SBO Discharge Diagnosis: Small bowel obstruction Activity: Resume your previous activity Non-emergency contact: Primary Care Provider Call non-emergency contact if: you have any medication questions and your symptoms worsen Follow-up/Referrals: Alan Oshea MD [Primary Care Provider] - 12/30/23 10:40 am (Date & Time 12/30/2023 10:40 AM Provider Alan Oshea MD Department Family Practice [facility] ) Diet: Low Fiber Addtl Attending Provider Instructions: You were admitted to the hospital due to small bowel obstruction. Please continue to follow low fiber diet at home. Follow-up with your primary care doctor as scheduled Pending Studies at Discharge: No Stand-Alone Forms: My [facility] [employer], Smoking Cessation Medications and DC Order Prescriptions: Continued acetaminophen 500 mg Tablet 500 mg PO Q6H PRN (Reason: Pain) ibuprofen 200 mg Tablet 600 mg PO Q6H PRN (Reason: Pain) lisinopril-hydrochlorothiazide 10-12.5 mg Tablet 1 tab PO QAM atorvastatin 10 mg tablet 10 mg PO DAILY omeprazole 40 mg capsule,delayed release(DR/EC) 40 mg PO DAILY Discharge Orders: Discharge Order (Routine); Ordered 12/27/23 Ordered By: Huan Perez/Other Patient Handouts: Low-Fiber Diet Admission Data Admit Date/Time: 12/21/23 20:15 Attending Provider: Huan Hall Admit Provider: Christina Arce Primary Care Provider: Alan Oshea Other Providers: Christina Arce; Shaan Laureano Other Interventions: Discharge Summary Assessment (RN) Last Done: 12/27/23 13:20
[2023-12-27 13:22] VITALS: PULSE 60
[2023-12-27] MEDS: POLYETHYLENE (MIRALAX) 17 GM PACK PO SCH (13:30)
== END 2023-12-27 13:43 | disposition home or self-care (01) | DRG 389 ==
LOC: ED 16:57 → EDINP 20:15 → SUATTDRO 20:15 → 3E 22:18